=== PATIENT | female | born 1935 | race Two or more races ===

== ENCOUNTER 2024-11-21 16:33 | Inpatient (IN) | payer OTHER, MEDICAID ==
[~2024-11-21] VITALS: Ht 152.4 cm; Wt 65.0 kg
--- NOTE | 2024-11-21 18:38 | ED.PDOC ---
SOB-HPI HPI Comments 89 y.o female with PMHx of DM, HTN, hyperlipidemia, presents to the ED for a chief complaint of a productive cough associated with phlegm and sweats that started 5 days ago. Patient was taken to a clinic by daughter and granddaughter today, per staff SPO2 read low there and HR was elevated. Patient was placed on oxygen then and transferred to the ED via family members. Patient at this time does not complaint of SOB, chest pain, fever, chills. Chief Complaint: Shortness of Breath Time Seen by MD: 18:26 Primary Care Provider: UNKNOWN Reviewed notes: Nurses Notes, Medications, Allergies Information Source: Relative Mode of Arrival: Wheelchair Severity: Moderate Timing: Days (5) Duration: Since onset Context: At Rest PE Risk Factors: None History of: None Associated Signs and Symptoms: Cough If cough with SOB: Productive, Clear Past Medical History PAST MEDICAL HISTORY: DM, High Lipids, HTN Surgical History: Denies all surgeries INSURANCE UNDERWRITER History: No Pertinent INSURANCE UNDERWRITER History Family History Family History: Reviewed,noncontributory to illness Social History Smoker: Non-Smoker Alcohol: Denies ETOH Use Drugs: Denies Drug Use Lives In: Home Constitutional: reports: sweats; denies: chills, diaphoresis, fatigue, fever, malaise, weakness, others EENTM: denies: blurred vision, double vision, ear bleeding, ear discharge, ear drainage, ear pain, ear ringing, eye pain, eye redness, hearing loss, mouth pain, mouth swelling, nasal discharge, nose bleeding, nose congestion, nose pain, photophobia, tearing, throat pain, throat swelling, voice changes, others Respiratory: reports: cough; denies: hemoptysis, orthopnea, SOB at rest, shortness of breath, SOB with excertion, stridor, wheezing, others Cardiovascular: denies: chest pain, dizzy spells, diaphoresis, Dyspnea on exertion, edema, irregular heart beat, left arm pain, lightheadedness, palpitations, PND, syncope, others Gastrointestinal: denies: abdomen distended, abdominal pain, blood streaked bowels, constipated, diarrhea, dysphagia, difficulty swallowing, hematemesis, melena, nausea, poor appetite, poor fluid intake, rectal bleeding, rectal pain, vomiting, others Genitourinary: denies: abnormal vagina bleeding, burning, dyspareunia, dysuria, flank pain, frequency, hematuria, incontinence, pain, , vagina discharge, urgency, others Neurological: denies: dizziness, fainting, headache, left sided numbness, left sided weakness, numbness, paresthesia, pre-existing deficit, right sided numbness, right sided weakness, seizure, speech problems, tingling, tremors, weakness, others Musculoskeletal: denies: back pain, gout, joint pain, joint swelling, muscle pain, muscle stiffness, neck pain, others Integumetry: denies: bruises, change in color, change in hair/nails, dryness, laceration, lesions, lumps, rash, wounds, others Allergic/Immunocompromised: denies: Difficulty Healing, Frequent Infections, H jeanette, Itching, others Hematologic/Lymphatic: denies: anemia, blood clots, easy bleeding, easy bruising, swollen glands, others Endocrine: denies: excessive hunger, excessive sweating, excessive thirst, excessive urination, flushing, intolerance to cold, intolerance to heat, unexplained weight gain, unexplained weight loss, others Psychiatric: denies: anxiety, bipolar disorder, depression, hopeless, panic disorder, schizophrenia, sleepless, suicidal, others All Other Systems: Reviewed and Negative Physical Exam General Appearance: Moderate Distress, Thin HEENT: Normal ENT Inspection, Pharynx Normal, TMs Normal Neck: Full Range of Motion, Non-Tender, Normal, Normal Inspection Respiratory: Chest Non-Tender, Decreased Breath Sounds, No Accessory Muscle Use, Respiratory Distress Cardiovascular: No Edema, No JVD, No Murmur, No Gallop, Tachycardia Breast Exam: Deferred Gastrointestinal: No Organomegaly, Non Tender, No Pulsatile Mass, Normal Bowel Sounds, Soft Genitalia: Deferred Pelvic: Deferred Rectal: Deferred Extremities: No calf tenderness, Normal capillary refill, No pedal edema Musculoskeletal : Apperance: Normal Neurologic: Alert, frozen meat cutter II-XII nml as Tested, Motor Weakness, Normal Affect, Normal Mood, No Sensory Deficits Cerebellar Function: Normal Reflexes: Normal Skin: Dry, Normal Color, Warm Lymphatic: No Adenopathy EKG EKG : Pulse Rate (adult): 112 Cardiac Rhythm: ST Was a procedure done? Was a procedure done?: No Differential Dx Differential Diagnosis: Bronchitis, CHF, COPD, Pneumonia, Respiratory Distress, URI X-Ray, Labs, Meds, VS Vital Signs Date Time Temp Pulse Resp B/P (MAP) Pulse Ox O2 Delivery O2 Flow Rate FiO2 11/21/24 18:38 112 11/21/24 16:52 112 11/21/24 16:49 98.0 120 22 127/71 (89) 91 98.0 Lab Test 11/21/24 19:53 11/21/24 18:59 Range/Units Sodium Level 158 H 136-145 mmol/L Potassium Level 3.8 3.5-5.1 mmol/L Chloride Level 118 H 98-107 mmol/L Carbon Dioxide Level 27 20-31 mmol/L Anion Gap 13 5-15 Blood Urea Nitrogen 36 H 9-23 mg/dL Creatinine 1.47 H 0.550-1.02 mg/dL Glomerular Filtration Rate Calc 34 >90 mL/min BUN/Creatinine Ratio 24.5 H 10.0-20.0 Serum Glucose 319 H 74-106 mg/dL Calcium Level 10.5 H 8.7-10.4 mg/dL Troponin I High Sensitivity 38 *H 39 *H </=34 ng/L White Blood Count 7.8 4.4-10.8 10^3/uL Red Blood Count 5.86 H 4.0-5.20 10^6/uL Hemoglobin 16.8 H 12.2-16.2 g/dL Hematocrit 52.4 H 36.0-46.0 % Mean Corpuscular Volume 89.4 80.0-100.0 fL Mean Corpuscular Hemoglobin 28.7 28.0-32.0 pg Mean Corpuscular Hemoglobin Concent 32.1 32.0-36.0 g/dL Red Cell Distribution Width 17.8 H 11.8-14.3 % Platelet Count 223 140-450 10^3/uL Mean Platelet Volume 9.1 6.9-10.8 fL Neutrophils (%) (Auto) 74.9 37.0-80.0 % Lymphocytes (%) (Auto) 17.0 10.0-50.0 % Monocytes (%) (Auto) 7.4 0.0-12.0 % Eosinophils (%) (Auto) 0.0 0.0-7.0 % Basophils (%) (Auto) 0.7 0.0-2.0 % Neutrophils # (Auto) 5.8 1.6-8.6 10 ^3/uL Lymphocytes # (Auto) 1.3 0.4-5.4 10 ^3/uL Monocytes # (Auto) 0.6 0-1.3 10 ^3/uL Eosinophils # (Auto) 0 0-0.8 10 ^3/uL Basophils # (Auto) 0.1 0-0.2 10 ^3/uL Nucleated Red Blood Cells 0.1 % B-Type Natriuretic Peptide 269.12 0-100 pg/mL Patient was CBC is within normal limits The BNP is 269.12 The troponin level is 38 and then 39 sign it was elevated At this time, the patient was being admitted to the hospitalist The chest x-ray shows: Findings/Impression: Frontal and lateral chest radiographs demonstrate that the patient facial structures obscuring the bilateral apices. No acute osseous or superficial soft tissue abnormalities. The trachea is midline. The cardiac silhouette and mediastinum are within normal limits. Left basilar atelectasis. No pneumothorax, pleural effusions, or consolidations. Images Reviewed?: Images reviewed and evaluated by me Time of 1ST Reevaluation: 18:35 Reevaluation 1ST: Unchanged Patient Education/Counseling: Diagnosis, Prognosis Family Education/Counseling: Diagnosis, Treatment, Prognosis Departure 1 Departure Time of Disposition: 21:09 Impression: Primary Impression: Generalized weakness Additional Impressions: Elevated troponin Acute respiratory distress Disposition: ADMITTED INPATIENT Condition: Fair Critical Care Note Critical Care Time?: Yes (35 min-critical care time only) Stability Stability form required: Yes Unstable for transfer: Telemetry monitoring (Telemetry monitoring required), ED Physician Assesment (Clinical assesment) I personally scribed for TONI BINGHAM MD ([email or web address]) on 11/21/24 at 18:38. Electronically submitted by Laura Ivan ([facility]). TONI BINGHAM MD Nov 21, 2024 18:38
[2024-11-21 19:23] LABS: Basophils # (auto) 0.1 10 ^3/uL (0-0.2); Basophils % (auto) 0.7 % (0.0-2.0); Eosinophils # (auto) 0 10 ^3/uL (0-0.8); Hematocrit 52.4 % (36.0-46.0); Hemoglobin 16.8 g/dL (12.2-16.2); Lymphocytes # (auto) 1.3 10 ^3/uL (0.4-5.4); Mean Corpuscular Hemoglobin 28.7 pg (28.0-32.0); Mean Corpuscular Hgb Conc. 32.1 g/dL (32.0-36.0); Mean Corpuscular Volume 89.4 fL (80.0-100.0); Monocytes # (auto) 0.6 10 ^3/uL (0-1.3); Monocytes % (auto) 7.4 % (0.0-12.0); Neutrophils # (auto) 5.8 10 ^3/uL (1.6-8.6); Neutrophils % (auto) 74.9 % (37.0-80.0); Nucleated Red Blood Cells % 0.1 %; Platelet Count (auto) 223 10^3/uL (140-450); Red Blood Cells 5.86 10^6/uL (4.0-5.20); Red Cell Distribution Width 17.8 % (11.8-14.3); White Blood Cell 7.8 10^3/uL (4.4-10.8)
--- NOTE | 2024-11-21 19:47 | DVH ---
EXAM: XY CHEST TWO VIEWS ROUTINE TECHNIQUE: Two radiographic views of the chest CLINICAL HISTORY: sob COMPARISON: None Findings/Impression: Frontal and lateral chest radiographs demonstrate that the patient facial structures obscuring the bi lateral apices. No acute osseous or superficial soft tissue abnormalities. The trachea is midline. The cardiac silhouette and mediastinum are within normal limits. Left basilar atelectasis. No pneumothorax, pleural effusions, or consolidations.
[2024-11-21 20:19] LABS: Potassium 3.8 mmol/L (3.5-5.1)
[2024-11-21 20:20] LABS: Anion Gap 13 (5-15); Carbon Dioxide 27 mmol/L (20-31)
[2024-11-21 20:23] LABS: Calcium 10.5 mg/dL (8.7-10.4); Chloride 118 mmol/L (98-107); Sodium 158 mmol/L (136-145)
[2024-11-21 20:25] LABS: BUN/Creatinine Ratio 24.5 (10.0-20.0)
[2024-11-21 20:27] LABS: Blood Urea Nitrogen 36 mg/dL (9-23); Glucose 319 mg/dL (74-106)
[2024-11-22] VITALS (7 sets, daily range): BP systolic 123–138; BP diastolic 66–78; PULSE 74–108; RESP 16–18; TEMP 97.4–99.9; O2SAT 90–97
[2024-11-22 01:14] LABS: Rapid Influenza A Negative (Negative); Rapid Influenza B Negative (Negative)
[2024-11-22 01:15] LABS: COVID19 ANTIGEN SOFIA FIA NEGATIVE (NEGATIVE)
[2024-11-22] MEDS ORDERED: DOCUSATE SOD 100 MG CAP PO PRN (01:30)
[2024-11-22] MEDS ORDERED: MORPHINE SULFATE INJ 2 MG/ml SYRG IV PRN (01:30)
[2024-11-22] MEDS ORDERED: NITROGLYCERIN 0.4 MG SL TAB SL PRN (01:30)
[2024-11-22] MEDS ORDERED: DEXTROSE (50%) 50ML SYRG IV PRN (06:45)
[2024-11-22] MEDS: ACCU-CHEK COMFORT CURVE STRIP VI SCH (07:00)
[2024-11-22] MEDS: InsuLIN REG 1unit/0.01ml Soln (100units/ml) SC SCH (07:00)
[2024-11-22] MEDS: ACCU-CHEK COMFORT CURVE STRIP VI ONE (08:00)
[2024-11-22] MEDS: InsuLIN REG 1unit/0.01ml Soln (100units/ml) SC ONE (08:00)
[2024-11-22] MEDS: DEXTROSE (50%) 50ML SYRG IV ONE (08:00)
[2024-11-22] MEDS ORDERED: SODIUM CHLORIDE 0.9% 1,000 ML IV SCH (08:15)
--- NOTE | 2024-11-22 08:30 | DVHHPRES ---
History of Present Illness Resident Creating Document: NOMI BAPTISTE RESIDENT History of Present Illness Ms. Patel, a 89-year-old female with a history of diabetes, hypertension, and hyperlipidemia presented to the emergency department with a productive cough, phlegm, and sweats that started five days ago. Her daughter and granddaughter took her to a clinic where her oxygen saturation was low and her heart rate was elevated. She was placed on oxygen and transferred to the ED by family members. She does not currently complain of shortness of breath, chest pain, fever, or chills. She arrived in a wheelchair, reports moderate severity, and the symptoms developed gradually over five days. She has no surgical history, no pertinent gynecological history, and her family history is noncontributory. She is a non- smoker, denies alcohol and drug use, and lives at home. Past Medical History diabetes, hypertension, and hyperlipidemia Review of Systems Allergies: Coded Allergies: Lactose Intolerance (GI) (Verified Allergy, Mild, 11/27/24) diarrhea Medications Current Medications Medications Dose Ordered Sig/Clara Route Start Time Stop Time Status Last Admin Dose Admin Docusate Sodium 100 mg BIDPRN PRN PO 11/22/24 01:30 Enoxaparin Sodium 30 mg DAILY SC 11/22/24 10:00 Nitroglycerin 0.4 mg Q5MINP PRN SL 11/22/24 01:30 Morphine Sulfate 2 mg Q30M PRN IV 11/22/24 01:30 Diagnostic Test (Pha) 1 strip ACHS 11/22/24 07:00 Insulin Human Regular ACHS SC 11/22/24 07:00 Dextrose 50 ml UD PRN IV 11/22/24 06:45 Exam Vital Signs Vital Signs Date Time Temp Pulse Resp B/P (MAP) Pulse Ox O2 Delivery O2 Flow Rate FiO2 11/22/24 05:00 99.9 105 17 134/77 (96) 95 99.9 11/22/24 04:43 Nasal Cannula* 2 28 Labs/Xrays Labs Test 11/22/24 00:10 11/21/24 22:00 11/21/24 19:53 11/21/24 18:59 Range/Units Influenza Type A Antigen Negative Negative Influenza Type B Antigen Negative Negative SARS-CoV-2 Antigen (Rapid) Negative NEGATIVE Troponin I High Sensitivity 41 *H </=34 ng/L Sodium Level 158 H 136-145 mmol/L Potassium Level 3.8 3.5-5.1 mmol/L Chloride Level 118 H 98-107 mmol/L Carbon Dioxide Level 27 20-31 mmol/L Anion Gap 13 5-15 Blood Urea Nitrogen 36 H 9-23 mg/dL Creatinine 1.47 H 0.550-1.02 mg/dL Glomerular Filtration Rate Calc 34 >90 mL/min BUN/Creatinine Ratio 24.5 H 10.0-20.0 Serum Glucose 319 H 74-106 mg/dL Calcium Level 10.5 H 8.7-10.4 mg/dL White Blood Count 7.8 4.4-10.8 10^3/uL Red Blood Count 5.86 H 4.0-5.20 10^6/uL Hemoglobin 16.8 H 12.2-16.2 g/dL Hematocrit 52.4 H 36.0-46.0 % Mean Corpuscular Volume 89.4 80.0-100.0 fL Mean Corpuscular Hemoglobin 28.7 28.0-32.0 pg Mean Corpuscular Hemoglobin Concent 32.1 32.0-36.0 g/dL Red Cell Distribution Width 17.8 H 11.8-14.3 % Platelet Count 223 140-450 10^3/uL Mean Platelet Volume 9.1 6.9-10.8 fL Neutrophils (%) (Auto) 74.9 37.0-80.0 % Lymphocytes (%) (Auto) 17.0 10.0-50.0 % Monocytes (%) (Auto) 7.4 0.0-12.0 % Eosinophils (%) (Auto) 0.0 0.0-7.0 % Basophils (%) (Auto) 0.7 0.0-2.0 % Neutrophils # (Auto) 5.8 1.6-8.6 10 ^3/uL Lymphocytes # (Auto) 1.3 0.4-5.4 10 ^3/uL Monocytes # (Auto) 0.6 0-1.3 10 ^3/uL Eosinophils # (Auto) 0 0-0.8 10 ^3/uL Basophils # (Auto) 0.1 0-0.2 10 ^3/uL Nucleated Red Blood Cells 0.1 % B-Type Natriuretic Peptide 269.12 0-100 pg/mL Assessment/Plan Assessment/Plan #Community-acquired pneumonia vs aspiration pneumonia: Gram +ve vs -ve cough phlegm chest discomfort on 2 L oxygen, viral workup -ve, emprirc coverage. #Acute hypoxic respiratory failure: 2l NC oxygen. denies chest pain #Type 2 NSTEMI: Likely demand mediated. No acute EKG changes. on telemetry #hypernatremia: Bmp revealed 158: patient is hypovolumic, iv ns for now, might correct by itself, 1.4 L #MITCHELL vs CKD baseline unknown #H/o DM: BG well maintained #Hyperlipidemia: re check #HTN essential: bp well, check closely no need of antihypertensives #mild hypercalcemia: 10.5, check CMP, correct according to albumin level, vitamin-D, phosphate, PTH to check. #unlikely polycythemia: Likely due to hemo concentration, repeat CBC #sinus tachycardia: Keep the patient on telemetry, check D-dimer, if elevated CTPE to rule out. #mild hypernatremia: Even when corrected for hyperglycemia #possible malnutrition: check CMP and as needed nutrition consult #deconditioning: PT + fall precaution. tsh b12 and further family discussion to know baseline. DVT: enoxaparin GI: ppi Diet: full liquid diet. Full code: discussed at bedside with [place] interpreters. 36 minutes of c linical work and discussion. Discussed with Dr. Louise. Plan discussed with: Patient, Other My Orders Orders - NOMI BAPTISTE RESIDENT Procedure Category Date Status Time Admit ADMIT 11/22/24 Transmitted 01:26 Allergies CAS 11/22/24 In Process 01:26 Code Status CODE 11/22/24 Transmitted 01:26 Oxygen Per Hour RT 11/22/24 Transmitted 01:26 Docusate Sodium PHA 11/22/24 In Process Capsule (Colace 01:30 Fall Risk Precautions CAS 11/22/[address] 01:26 Complete Blood Count LAB 11/23/24 Verified 04:00 Comprehensive LAB 11/23/24 Verified Metabolic Panel 04:00 Npo (Nothing By DIET 11/22/24 Transmitted Mouth) Diet Breakfast Pt Request For Service PT 11/22/24 Logged 01:26 Echo 2d Mode Cardiac US 11/22/24 Logged DOP 01:26 Nitroglycerin PHA 11/22/24 In Process Sublingual (Ntrostat 01:30 Morphine Sulfate PHA 11/22/24 In Process Injection 01:30 Oxygen By Nasal RT 11/22/24 Transmitted Cannula 01:26 Stat Ekg For Chest [facility] 11/22/24 In Process Pain 01:26 Notify Of Changes [facility] 11/22/24 In Process From Base 01:26 Superintendent Job For [facility] 11/22/24 In Process 24 Hours 01:26 Emergency Dysrhythmia [facility] 11/22/24 In Process Protocol 01:26 Rhythm Strips Once [facility] 11/22/24 In Process Every Shift 01:26 Enoxaparin Sodium PHA 11/22/24 In Process (Lovenox) 10:00 Glucose Blood PHA 11/22/24 In Process (Accu-Chek Comfort 07:00 Insulin R (Human) PHA 11/22/24 In Process (Insulin R) 07:00 Dextrose 50% Syringe PHA 11/22/24 In Process 06:45 Complete Blood Count LAB 11/22/24 Logged 07:45 Comprehensive LAB 11/22/24 Logged Metabolic Panel 07:45 Erythrocyte LAB 11/22/24 Logged Sedimentation Rate 07:45 C-Reactive Protein LAB 11/22/24 Logged 07:45 Thyroid Stimulating LAB 11/22/24 Logged Hormone 07:45 Electrocardigram EKG 11/22/24 Logged 07:52 Communication Order ORDERS 11/22/24 Transmitted 07:53 Glucose Blood PHA 11/22/24 Logged (Accu-Chek Comfort 08:00 Insulin R (Human) PHA 11/22/24 Logged (Insulin R) 08:00 Dextrose 50% Syringe PHA 11/22/24 Logged 08:00 Full Liq Diet DIET 11/22/24 Transmitted Breakfast Hemoglobin A1c LAB 11/22/24 Transmitted 07:59 Lipid Panel LAB 11/22/24 Transmitted 07:59 Date of Service: Nov 22, 2024 Billing Provider: SYEDA LOUISE MD Common Visit Codes: [id number] INP/OBS CARE (HIGH) NOMI BAPTISTE RESIDENT Nov 22, 2024 08:30 SYEDA LOUISE MD Nov 28, 2024 22:11
[2024-11-22] MEDS ORDERED: AZITHROMYCIN 500MG/ 250ML 250 ML IV SCH (09:00)
[2024-11-22] MEDS ORDERED: SOD CHL 0.45% 1,000 ML IV ONE (09:45)
[2024-11-22] MEDS: SODIUM CHLORIDE 0.9% 1,000 ML IV ONE ×2 (10:17→15:30)
[2024-11-22 10:21] LABS: Base Excess 1.3 mmol/L (-2.0-3.0)
[2024-11-22] MEDS: cefTRIAXone 1GM/50ML D5W 50 ML IV SCH (10:24)
[2024-11-22] MEDS: ENOXAPARIN SOD 30 MG/0.3 ML SYRINGE SC SCH ×2 (10:24→20:29)
[2024-11-22] MEDS: PANTOPRAZOLE 40 MG/10 ML VIAL INJ IV SCH (10:24)
--- NOTE | 2024-11-22 10:46 | ECG ---
[facility] Test Date: 2024-11-21 Test Time: 16:52:54 Pat Name: CHANNING BLANCA Department: ER Room: 0236T A Gender: F Abstracter: YOLIE : 1935 Requested By: TONI BINGHAM Order Number: [id number] Reading MD: Joe Joseph Measurements Intervals [place] Rate: 112 P: 14 CT: 113 QRS: -8 QRSD: 220 T: 18 QT: 319 QTc: 436 Interpretive Statements Sinus tachycardia Probable left ventricular hypertrophy Artifact in lead(s) I,III,aVL Electronically Signed On 11-24-2024 20:40:55 PDT by Joe Joseph Please click the below link to view image of tracing.
[2024-11-22 10:56] LABS: Basophils # (auto) 0.1 10 ^3/uL (0-0.2); Basophils % (auto) 0.6 % (0.0-2.0); Eosinophils # (auto) 0 10 ^3/uL (0-0.8); Hematocrit 50.5 % (36.0-46.0); Hemoglobin 16.6 g/dL (12.2-16.2); Lymphocytes # (auto) 1.9 10 ^3/uL (0.4-5.4); Lymphocytes % (auto) 18.8 % (10.0-50.0); Mean Corpuscular Hemoglobin 28.8 pg (28.0-32.0); Mean Corpuscular Hgb Conc. 32.8 g/dL (32.0-36.0); Mean Corpuscular Volume 87.9 fL (80.0-100.0); Monocytes # (auto) 0.6 10 ^3/uL (0-1.3); Monocytes % (auto) 5.9 % (0.0-12.0); Neutrophils # (auto) 7.6 10 ^3/uL (1.6-8.6); Neutrophils % (auto) 74.7 % (37.0-80.0); Nucleated Red Blood Cells % 0.1 %; Platelet Count (auto) 243 10^3/uL (140-450); Red Blood Cells 5.75 10^6/uL (4.0-5.20); Red Cell Distribution Width 17.2 % (11.8-14.3); White Blood Cell 10.1 10^3/uL (4.4-10.8)
[2024-11-22 11:12] LABS: % Iron Saturation 25.3 % (15-50); Alanine Aminotransferase 16 U/L (7-40); Alkaline Phosphatase 60 U/L (46-116); Anion Gap 14 (5-15); Aspartate Aminotransferase 18 U/L (13-40); BUN/Creatinine Ratio 29.7 (10.0-20.0); Bilirubin, Total 0.5 mg/dL (0.2-1.0); Carbon Dioxide 28 mmol/L (20-31); Potassium 3.6 mmol/L (3.5-5.1); Total Protein 8.1 g/dL (5.7-8.2)
[2024-11-22 11:18] LABS: Blood Urea Nitrogen 43 mg/dL (9-23); Calcium 10.5 mg/dL (8.7-10.4); Chloride 119 mmol/L (98-107); Cholesterol 229 mg/dL (< 200); Glucose 233 mg/dL (74-106); HDL Cholesterol 39 mg/dL (40-59); LDL Cholesterol 165 mg/dL (< 100); Triglycerides 165 mg/dL (< 150)
[2024-11-22 11:20] LABS: Sodium 161 mmol/L (136-145)
[2024-11-22 11:27] LABS: CRP High Sensitivity 2.38 mg/dL (<1.0)
[2024-11-22 11:29] LABS: Erythrocyte Sedimentation Rate 29 mm/hr (0-20)
[2024-11-22] MEDS: AZITHROMYCIN 500MG/ 250ML 250 ML IV ONE (11:54)
[2024-11-22 13:36] LABS: Potassium 3.5 mmol/L (3.5-5.1)
[2024-11-22 13:37] LABS: Anion Gap 12 (5-15); Calcium 9.7 mg/dL (8.7-10.4); Carbon Dioxide 27 mmol/L (20-31); Chloride 121 mmol/L (98-107); Sodium 160 mmol/L (136-145)
[2024-11-22 13:42] LABS: Glucose 250 mg/dL (74-106)
[2024-11-22 13:43] LABS: BUN/Creatinine Ratio 30.9 (10.0-20.0); Blood Urea Nitrogen 38 mg/dL (9-23)
[2024-11-22] MEDS: SODIUM CHLORIDE 0.9% 1,000 ML IV SCH (15:30)
--- NOTE | 2024-11-22 16:24 | DVHPNRES ---
Progress Note Date Seen: Nov 22, 2024 Resident Creating Document: BRAVO HUGGINS RESIDENT Medical Necessity Reason Pt with a Central, PICC or Fol: No Subjective Review of Systems Patient is 89 years old female with past medical history of hypertension, diabetes mellitus, hyperlipidemia, dementia was brought in due to productive cough. As per family granddaughter patient has been having cough with greenish sputum for last 7 days associated with sweating, denied any fever, chest pain or shortness of breath. Patient was taken to clinic and where she was found to have hypoxemia and tachycardia. The so patient was referred to ER. Initial lab workup revealed polycythemia, hyponatremia sodium 158, MITCHELL with a serum creatinine 1.47, BUN 36, mildly elevated troponin I 39> 35>45, BNP 269, D-dimer 3.0, negative for COVID-19 and influenza type A and B. triglyceride 165, cholesterol 229, LDL 165. CXR left basilar atelectasis. PMH-hypertension, diabetes mellitus, hyperlipidemia, severe dementia PSH- Allergy- NKDA Personal History/ Social History- patient is more Home came 1 month before, lives with her son Patient is nonverbal, noncommunicating at this moment Patient was seen today for clinical evaluation. Labs and chart reviewed. Patient is on IV antibiotic ceftriaxone and azithromycin, patient with a hyponatremia IV normal saline bolus was given. Due for Doppler study of the lower extremity to rule out DVT as D-dimer is elevated 3.0. Objective vital signs Vital Sign Date Time Temp Pulse Resp B/P (MAP) Pulse Ox O2 Delivery O2 Flow Rate FiO2 11/22/24 13:00 97.4 78 16 123/66 (85) 90 97.4 11/22/24 08:00 Nasal Cannula* 6 44 Total Intake and Output 11/21/24 11/21/24 11/22/24 15:00 23:00 07:00 Intake Total 0 ml Balance 0 ml medications Current Medications Medications Dose Ordered Sig/Clara Route Start Time Stop Time Status Last Admin Dose Admin Docusate Sodium 100 mg BIDPRN PRN PO 11/22/24 01:30 Enoxaparin Sodium 30 mg DAILY SC 11/22/24 10:00 11/22/24 10:24 30 MG Nitroglycerin 0.4 mg Q5MINP PRN SL 11/22/24 01:30 Morphine Sulfate 2 mg Q30M PRN IV 11/22/24 01:30 Diagnostic Test (Pha) 1 strip ACHS 11/22/24 07:00 11/22/24 11:55 1 STRIP Insulin Human Regular ACHS SC 11/22/24 07:00 Dextrose 50 ml UD PRN IV 11/22/24 06:45 Ceftriaxone Sodium 50 ml @ 100 mls/hr DAILY@09 IV 11/22/24 09:00 11/22/24 10:24 100 MLS/HR Pantoprazole Sodium 40 mg DAILY IV 11/22/24 10:00 11/22/24 10:24 40 MG Azithromycin 250 ml @ 125 mls/hr DAILY IV 11/23/24 10:00 Sodium Chloride 1,000 ml @ 100 mls/hr Q10H IV 11/22/24 15:30 Examination General examination- HEENT- PEERLA, no acute nasal discharge Cardiovascular- S1-S2 audible, rate and rhythm regular, no murmur Respiratory- CTAB, no wheeze or rhonchi Gastrointestinal-nontender, bowel sound+. Nondistended Musculoskeletal-no acute joint swelling or tenderness or redness Lower extremity- no leg swelling Neurological- cranial nerves intact, no acute dysarthria or dysphagia Skin- no acute rash or purpura laboratory and microbiology Laboratory Tests 11/22/24 12:59 11/22/24 09:27 Test 11/22/24 12:59 Range/Units Serum Glucose 250 H 74-106 mg/dL Problem List/Assessment/Plan Problem List/Assessment/Plan Assessment and plan # sepsis likely due to pneumonia --continue antibiotic ceftriaxone and azithromycin as prescribed -continue IV fluid as prescribed -monitor CMP -pending blood culture, urine culture, sputum culture # acute metabolic encephalopathy likely due to pneumonia/hyponatremia -continue antibiotic ceftriaxone and azithromycin as prescribed -continue IV fluid as prescribed -monitor CMP -pending blood culture, urine culture, sputum culture # suspected pneumonia Gram-positive versus Gram-negative --continue antibiotic ceftriaxone and azithromycin as prescribed -continue IV fluid as prescribed -monitor CMP # Hypernatremia likely due to dehydration -monitor IV fluid as prescribed -monitor CMP # MITCHELL likely due to VMN -avoid dehydration and nephrotoxic drugs -continue IV fluid as prescribed # NSTEMI Type 2 likely due to -monitor clinically # diabetes mellitus type 2 --insulin sliding scale as prescribed # history of hypertension -monitor blood pressure # hyperlipidemia Goals of care, Code status ; discussed with >15 minutes PUD prophylaxis: Pantoprazole DVT prophylaxis: Lovenox Plan discussed with Dr. Kruger , nursing staff, granddaughter Total time spent on patient evaluation, chart review, assessment and plan, discussion discussion >35 minutes Plan discussed with: Other (Granddaughter, RN) My Orders My Orders Orders - BRAVO HUGGINS Procedure Category Date Status Time Blood Culture JOSE 11/22/24 In Process 08:46 Respiratory Culture JOSE 11/22/24 Logged W/ Gs 08:46 Urine Bacterial JOSE 11/22/24 Logged Culture 08:47 Sodium Chloride 0.9% PHA 11/22/24 In Process 15:30 Sodium Chloride 0.9% PHA 11/22/24 In Process 15:30 Basic Metabolic Panel LAB 11/22/24 Logged 17:00 Basic Metabolic Panel LAB 11/22/24 Logged 18:22 Basic Metabolic Panel LAB 11/22/24 Logged 23:50 Bilat Lower Dvt US 11/22/24 Taken 15:24 Date of Service: Nov 22, 2024 Billing Provider: STACY REID MD Common Visit Codes: [id number] INP/OBS CARE(HIGH) BRAVO HUGGINS Nov 22, 2024 16:24 STACY REID MD Nov 28, 2024 09:36
--- NOTE | 2024-11-22 16:34 | DVH ---
EXAM: US BILAT LOWER DVT Clinical History: DVT Comparison: None Technique: Duplex Doppler evaluation of the deep venous systems of both lower extremities from the common femora l veins to the popliteal veins including color Doppler and spectral/pulsed waveform analysis was perf ormed. Findings: No visible intraluminal venous thrombus. No evidence of incompressibility or abnormal color or spectr al Doppler flow visualized in the deep bilateral lower extremity veins. Proximal greater saphenous ve ins are grossly unremarkable. The right distal superficial femoral, popliteal, and posterior tibial veins are not visualized. Impression: 1. No sonographic evidence of deep venous thrombosis throughout the visualized bilateral lower extrem ities from the popliteal veins to the common femoral veins. 2. The right distal superficial femoral, popliteal, and posterior tibial veins are not visualized.
[2024-11-22 18:02] LABS: Potassium 3.6 mmol/L (3.5-5.1)
[2024-11-22 18:03] LABS: Anion Gap 13 (5-15); Carbon Dioxide 27 mmol/L (20-31)
[2024-11-22 18:04] LABS: Calcium 9.4 mg/dL (8.7-10.4)
[2024-11-22 18:09] LABS: BUN/Creatinine Ratio 37.1 (10.0-20.0)
[2024-11-22] MEDS: D5W 5% 1,000 ML IV SCH (18:12)
[2024-11-22 18:31] LABS: Blood Urea Nitrogen 39 mg/dL (9-23); Chloride 120 mmol/L (98-107); Glucose 188 mg/dL (74-106); Sodium 160 mmol/L (136-145)
[2024-11-22 18:59] LABS: Anion Gap 11 (5-15); Calcium 9.4 mg/dL (8.7-10.4); Carbon Dioxide 28 mmol/L (20-31)
[2024-11-22 19:04] LABS: BUN/Creatinine Ratio 33.3 (10.0-20.0)
[2024-11-22 19:05] LABS: Blood Urea Nitrogen 33 mg/dL (9-23); Chloride 120 mmol/L (98-107); Glucose 194 mg/dL (74-106); Potassium 3.3 mmol/L (3.5-5.1); Sodium 159 mmol/L (136-145)
[2024-11-22] MEDS: SODIUM CHL 0.9% 100 ML IV SCH (20:00)
[2024-11-22] MEDS: METOPROLOL TARTRATE 1MG/1ML-5ML VIAL IV ONE ×2 (20:12→20:16)
[2024-11-22] MEDS: POTASSIUM CHL 20MEQ/50ML 50 ML IV ONE ×2 (20:14→20:32)
[2024-11-23] VITALS (8 sets, daily range): BP systolic 101–149; BP diastolic 56–76; PULSE 61–75; RESP 16–17; TEMP 97.2–99; O2SAT 92–97
[2024-11-23 00:10] LABS: Potassium 3.6 mmol/L (3.5-5.1)
[2024-11-23 00:11] LABS: Anion Gap 9 (5-15); Carbon Dioxide 26 mmol/L (20-31)
[2024-11-23 00:12] LABS: Calcium 8.9 mg/dL (8.7-10.4); Chloride 120 mmol/L (98-107); Sodium 155 mmol/L (136-145)
[2024-11-23 00:17] LABS: BUN/Creatinine Ratio 34.8 (10.0-20.0); Blood Urea Nitrogen 32 mg/dL (9-23); Glucose 212 mg/dL (74-106); Magnesium 1.8 mg/dL (1.6-2.6)
[2024-11-23 06:16] LABS: Basophils # (auto) 0 10 ^3/uL (0-0.2); Basophils % (auto) 0.4 % (0.0-2.0); Eosinophils # (auto) 0 10 ^3/uL (0-0.8); Eosinophils % (auto) 0.5 % (0.0-7.0); Hemoglobin 13.6 g/dL (12.2-16.2); Lymphocytes # (auto) 1.8 10 ^3/uL (0.4-5.4); Lymphocytes % (auto) 26.7 % (10.0-50.0); Mean Corpuscular Hemoglobin 28.9 pg (28.0-32.0); Mean Corpuscular Hgb Conc. 32.4 g/dL (32.0-36.0); Mean Corpuscular Volume 89.2 fL (80.0-100.0); Monocytes # (auto) 0.4 10 ^3/uL (0-1.3); Monocytes % (auto) 6.6 % (0.0-12.0); Neutrophils # (auto) 4.3 10 ^3/uL (1.6-8.6); Neutrophils % (auto) 65.8 % (37.0-80.0); Nucleated Red Blood Cells % 0.1 %; Platelet Count (auto) 182 10^3/uL (140-450); Red Cell Distribution Width 17.7 % (11.8-14.3); White Blood Cell 6.6 10^3/uL (4.4-10.8)
[2024-11-23 06:33] LABS: Alanine Aminotransferase 17 U/L (7-40); Albumin 3.7 g/dL (3.2-4.8); Alkaline Phosphatase 50 U/L (46-116); Anion Gap 8 (5-15); Aspartate Aminotransferase 18 U/L (13-40); BUN/Creatinine Ratio 32.6 (10.0-20.0); Calcium 8.7 mg/dL (8.7-10.4); Carbon Dioxide 28 mmol/L (20-31); Magnesium 1.8 mg/dL (1.6-2.6); Potassium 3.7 mmol/L (3.5-5.1); Total Protein 6.2 g/dL (5.7-8.2)
[2024-11-23 06:34] LABS: Bilirubin, Total 0.5 mg/dL (0.2-1.0)
[2024-11-23 06:39] LABS: Blood Urea Nitrogen 30 mg/dL (9-23); Chloride 120 mmol/L (98-107); Glucose 183 mg/dL (74-106); Sodium 156 mmol/L (136-145)
[2024-11-23] MEDS: SOD CHL 0.45% 500 ML IV ONE (07:04)
[2024-11-23] MEDS: MAGNESIUM SULFATE 1GM/100ML 100 ML IV ONE (09:15)
[2024-11-23] MEDS ORDERED: SOD CHL 0.45% 1,000 ML IV ONE (09:45)
[2024-11-23] MEDS ORDERED: DEXTROSE (50%) 50ML SYRG IV PRN (10:45)
--- NOTE | 2024-11-23 11:28 | ECG ---
[facility] Test Date: 2024-11-22 Test Time: 19:59:23 Pat Name: CHANNING BLANCA Department: Respiratoy Room: 0236T A Gender: F [employer]: SANDI : 1935 Requested By: NOMI BAPTISTE Order Number: [id number] Reading MD: Joe Joseph Measurements Intervals [place] Rate: 160 P: 0 [place]: 0 QRS: -21 QRSD: 58 T: 169 QT: 282 QTc: 461 Interpretive Statements Atrial fibrillation with rapid V-rate Ventricular premature complex Borderline left axis deviation Repolarization abnormality, prob rate related Baseline wander in lead(s) V3,V4 Electronically Signed On 11-24-2024 20:25:53 PDT by Joe Joseph Please click the below link to view image of tracing.
[2024-11-23] MEDS ORDERED: SOD CHL 0.45% 1,000 ML IV SCH (11:45)
[2024-11-23] MEDS: ACCU-CHEK COMFORT CURVE STRIP VI SCH (12:00)
[2024-11-23] MEDS: InsuLIN REG 1unit/0.01ml Soln (100units/ml) SC SCH (12:00)
[2024-11-23 12:21] LABS: Urine Bacteria None Seen /hpf (None Seen)
[2024-11-23 12:31] LABS: Urine Blood TRACE /uL (Negative); Urine Clarity Clear (Clear); Urine Color Light-Yellow (Yellow); Urine Mucus FEW (None Seen); Urine Protein, UAD Negative (Negative); Urine Specific Gravity 1.018 (1.001-1.035); Urine Squamous Epithelial Cell FEW /hpf (<5); Urine Urobilinogen Normal (Negative); Urine WBC 77 /HPF (0-5); Urine pH 5.5 (5.0-9.0)
[2024-11-23] MEDS: AZITHROMYCIN 500MG/ 250ML 250 ML IV SCH (13:07)
[2024-11-23 13:20] LABS: Anion Gap 9 (5-15)
[2024-11-23 13:23] LABS: Calcium 8.6 mg/dL (8.7-10.4); Carbon Dioxide 26 mmol/L (20-31); Chloride 115 mmol/L (98-107); Potassium 3.5 mmol/L (3.5-5.1); Sodium 150 mmol/L (136-145)
[2024-11-23 13:25] LABS: Glucose 121 mg/dL (74-106)
[2024-11-23] MEDS ORDERED: VANCOMYCIN PER PHARMACY 0 MG IV SCH (13:45)
[2024-11-23 14:00] LABS: BUN/Creatinine Ratio 33.8 (10.0-20.0); Blood Urea Nitrogen 23 mg/dL (9-23)
[2024-11-23] MEDS: D5W 5% 1,000 ML IV SCH (14:02)
--- NOTE | 2024-11-23 14:39 | DVHPNRES ---
Progress Note Date Seen: Nov 23, 2024 Resident Creating Document: BRAVO HUGGINS RESIDENT Medical Necessity Reason Pt with a Central, PICC or Fol: No The following are medically ne: PICC Line, David Catheter Subjective Review of Systems Patient is 89 years old female with past medical history of hypertension, diabetes mellitus, hyperlipidemia, dementia was brought in due to productive cough. As per family granddaughter patient has been having cough with greenish sputum for last 7 days associated with sweating, denied any fever, chest pain or shortness of breath. Patient was taken to clinic and where she was found to have hypoxemia and tachycardia. The so patient was referred to ER. Initial lab workup revealed polycythemia, hyponatremia sodium 158, MITCHELL with a serum creatinine 1.47, BUN 36, mildly elevated troponin I 39> 35>45, BNP 269, D-dimer 3.0, negative for COVID-19 and influenza type A and B. triglyceride 165, cholesterol 229, LDL 165. CXR left basilar atelectasis. PMH-hypertension, diabetes mellitus, hyperlipidemia, severe dementia PSH- Allergy- NKDA Personal History/ Social History- patient is more [place] came 1 month before, lives with her son Patient is nonverbal, noncommunicating at this moment Patient was seen today for clinical evaluation. Labs and chart reviewed. Blood culture revealed Gram-positive cocci in cluster, ordered vancomycin as per pharmacy protocol. Patient's sodium trending down to 158> 161> 160> 159> 155> 156> 150>149. HGB A1c 6.7. Patient was still on NC O2 1 L/min, still poorly communicative, Doppler study of the lower extremity negative for DVT Objective vital signs Vital Sign Date Time Temp Pulse Resp B/P (MAP) Pulse Ox O2 Delivery O2 Flow Rate FiO2 11/23/24 12:58 98.2 68 17 120/67 (84) 97 98.2 11/23/24 08:00 Nasal Cannula* 4 36 Total Intake and Output 11/22/24 11/22/24 11/23/24 14:59 22:59 06:59 Intake Total 1000 ml 1660 ml 0 ml Balance 1000 ml 1660 ml 0 ml medications Current Medications Medications Dose Ordered Sig/Clara Route Start Time Stop Time Status Last Admin Dose Admin Docusate Sodium 100 mg BIDPRN PRN PO 11/22/24 01:30 Nitroglycerin 0.4 mg Q5MINP PRN SL 11/22/24 01:30 Morphine Sulfate 2 mg Q30M PRN IV 11/22/24 01:30 Ceftriaxone Sodium 50 ml @ 100 mls/hr DAILY@09 IV 11/22/24 09:00 11/23/24 10:29 100 MLS/HR Pantoprazole Sodium 40 mg DAILY IV 11/22/24 10:00 11/23/24 10:33 40 MG Enoxaparin Sodium 30 mg BID SC 11/22/24 20:00 11/23/24 10:34 30 MG Dextrose 1,000 ml @ 100 mls/hr Q10H IV 11/23/24 10:45 11/23/24 14:02 100 MLS/HR Diagnostic Test (Pha) 1 strip Q6HR 11/23/24 12:00 11/23/24 12:00 1 STRIP Insulin Human Regular Q6HR SC 11/23/24 12:00 Dextrose 50 ml UD PRN IV 11/23/24 10:45 Vancomycin HCl 0 ml @ 0 mls/hr UD IV 11/23/24 13:45 Azithromycin 250 ml @ 125 mls/hr DAILY IV 11/24/24 10:00 Examination General examination- HEENT- PEERLA, no acute nasal discharge Cardiovascular- S1-S2 audible, rate and rhythm regular, no murmur Respiratory- CTAB, no wheeze or rhonchi Gastrointestinal-nontender, bowel sound+. Nondistended Musculoskeletal-no acute joint swelling or tenderness or redness Lower extremity- no leg swelling Neurological- cranial nerves intact, no acute dysarthria or dysphagia Skin- no acute rash or purpura laboratory and microbiology Laboratory Tests 11/23/24 12:45 11/23/24 05:40 Test 11/23/24 12:45 Range/Units Serum Glucose 121 H 74-106 mg/dL Microbiology Date/Time Source Procedure Growth Status 11/22/24 12:59 Blood Blood Culture - Preliminary Resulted Problem List/Assessment/Plan Problem List/Assessment/Plan Assessment and plan # sepsis likely due to pneumonia --continue antibiotic ceftriaxone and azithromycin, vancomycin as prescribed -monitor CMP -pending blood culture, urine culture, sputum culture # acute metabolic encephalopathy likely due to pneumonia/hyponatremia -continue antibiotic ceftriaxone and azithromycin, vancomycin as prescribed -monitor CMP -pending blood culture, urine culture, sputum culture # suspected pneumonia Gram-positive versus Gram-negative --continue antibiotic ceftriaxone and azithromycin, vanco as prescribed -monitor CMP # Hypernatremia likely due to dehydration -monitor IV fluid as prescribed -monitor CMP # MITCHELL likely due to VMN -avoid dehydration and nephrotoxic drugs # NSTEMI Type 2 likely due to -monitor clinically # diabetes mellitus type 2 --insulin sliding scale as prescribed # history of hypertension -monitor blood pressure # hyperlipidemia Goals of care, Code status ; discussed with >15 minutes PUD prophylaxis: Pantoprazole DVT prophylaxis: Lovenox Plan discussed with Dr. Kruger , nursing staff, granddaughter Total time spent on patient evaluation, chart review, assessment and plan, discussion discussion >35 minutes Plan discussed with: Other (RN) My Orders My Orders Orders - BRAVO HUGGINS RESIDENT Procedure Category Date Status Time Bilat Lower Dvt US 11/22/24 Resulted 15:24 * Wound Consult CONS 11/22/24 Transmitted * Dietary Consult CONS 11/22/24 Transmitted 16:21 Basic Metabolic Panel LAB 11/23/24 Logged 15:00 D5w 5% (Dextrose 5%) PHA 11/23/24 In Process 10:45 Glucose Blood PHA 11/23/24 In Process (Accu-Chek Comfort 12:00 Insulin R (Human) PHA 11/23/24 In Process (Insulin R) 12:00 Dextrose 50% Syringe PHA 11/23/24 In Process 10:45 Pt Request For Service PT 11/23/24 Logged 10:46 * Dietary Consult CONS 11/23/24 Transmitted 10:46 Urine Dip ED NURSING 11/23/24 Transmitted Insert David Catheter CAS 11/23/24 In Process 10:10 Vancomycin Per PHA 11/23/24 In Process Pharmacy 13:45 Cleanse Wound With CAS 11/23/24 In Process Mild Soap A 10:44 Azithromycin 500mg/ PHA 11/24/24 In Process 250ml (Zithromax 50 10:00 Vancomycin 1gm/200ml PHA 11/23/24 In Process Pm 14:00 Complete Blood Count LAB 11/24/24 Verified 04:00 Creatinine LAB 11/24/24 Verified 04:00 Vancomycin,Random LAB 11/24/24 Verified 04:00 Basic Metabolic Panel LAB 11/23/24 Transmitted 16:00 Basic Metabolic Panel LAB 11/23/24 Transmitted 22:00 Dietary Evaluation Review Comments: 1. Disagree with current diet, liberalize to Full Liquid and D/C sodium/CHO restrictions 2. Encourage good oral intakes >50% of meals to meet est. needs 3. Monitor wt trends closely 4. Assist w/ tray set-up, 1:1 feeding as needed due to AMS 5. Will add Glucerna BID (220 kcal, 10 gm pro/carton) *Change to Ensure Enlive when diet liberalized Expected Outcomes/Goals: Improved nutritional status, weight maintenance. Date of Service: Nov 23, 2024 Billing Provider: STACY REID MD Common Visit Codes: [id number] INP/OBS CARE(HIGH) BRAVO HUGGINS RESIDENT Nov 23, 2024 14:39 STACY REID MD Nov 28, 2024 09:41
[2024-11-23] MEDS: VANCOMYCIN 1GM/200ML PM 200 ML IV ONE (16:41)
[2024-11-23 17:15] LABS: Potassium 3.6 mmol/L (3.5-5.1)
[2024-11-23 17:16] LABS: Anion Gap 8 (5-15); Calcium 8.9 mg/dL (8.7-10.4); Carbon Dioxide 28 mmol/L (20-31)
[2024-11-23 17:21] LABS: BUN/Creatinine Ratio 32.4 (10.0-20.0)
[2024-11-23 17:25] LABS: Blood Urea Nitrogen 23 mg/dL (9-23); Chloride 113 mmol/L (98-107); Glucose 168 mg/dL (74-106); Sodium 149 mmol/L (136-145)
[2024-11-23 22:31] LABS: Anion Gap 8 (5-15); Carbon Dioxide 27 mmol/L (20-31)
[2024-11-23 22:34] LABS: Calcium 8.7 mg/dL (8.7-10.4); Chloride 111 mmol/L (98-107); Potassium 3.2 mmol/L (3.5-5.1); Sodium 146 mmol/L (136-145)
[2024-11-23 22:36] LABS: BUN/Creatinine Ratio 31.3 (10.0-20.0); Blood Urea Nitrogen 21 mg/dL (9-23)
[2024-11-23 22:39] LABS: Glucose 129 mg/dL (74-106)
[2024-11-24] VITALS (8 sets, daily range): BP systolic 130–153; BP diastolic 56–77; PULSE 58–70; RESP 16–18; TEMP 97.3–98.9; O2SAT 92–98
[2024-11-24 05:50] LABS: Basophils # (auto) 0 10 ^3/uL (0-0.2); Basophils % (auto) 0.8 % (0.0-2.0); Eosinophils # (auto) 0.1 10 ^3/uL (0-0.8); Eosinophils % (auto) 1.4 % (0.0-7.0); Hemoglobin 12.8 g/dL (12.2-16.2); Lymphocytes # (auto) 1.8 10 ^3/uL (0.4-5.4); Lymphocytes % (auto) 30.3 % (10.0-50.0); Mean Corpuscular Hemoglobin 29.1 pg (28.0-32.0); Mean Corpuscular Hgb Conc. 32.9 g/dL (32.0-36.0); Mean Corpuscular Volume 88.5 fL (80.0-100.0); Monocytes # (auto) 0.4 10 ^3/uL (0-1.3); Monocytes % (auto) 6.7 % (0.0-12.0); Neutrophils # (auto) 3.7 10 ^3/uL (1.6-8.6); Neutrophils % (auto) 60.8 % (37.0-80.0); Nucleated Red Blood Cells % 0.1 %; Platelet Count (auto) 170 10^3/uL (140-450); Red Blood Cells 4.41 10^6/uL (4.0-5.20); Red Cell Distribution Width 16.7 % (11.8-14.3); White Blood Cell 6.1 10^3/uL (4.4-10.8)
[2024-11-24 06:09] LABS: Alanine Aminotransferase 19 U/L (7-40); Albumin 3.3 g/dL (3.2-4.8); Alkaline Phosphatase 51 U/L (46-116); Anion Gap 9 (5-15); Aspartate Aminotransferase 29 U/L (13-40); Blood Urea Nitrogen 19 mg/dL (9-23); Carbon Dioxide 26 mmol/L (20-31); Magnesium 1.6 mg/dL (1.6-2.6); Total Protein 5.9 g/dL (5.7-8.2)
[2024-11-24 06:10] LABS: Bilirubin, Total 0.5 mg/dL (0.2-1.0)
[2024-11-24 06:11] LABS: Calcium 8.5 mg/dL (8.7-10.4); Chloride 110 mmol/L (98-107); Glucose 112 mg/dL (74-106); Potassium 3.2 mmol/L (3.5-5.1); Sodium 145 mmol/L (136-145)
[2024-11-24] MEDS: POTASSIUM CHL 20MEQ/50ML 50 ML IV SCH (06:51)
[2024-11-24] MEDS: SODIUM CHL 0.9% 100 ML IV SCH (06:53)
[2024-11-24] MEDS: MAGNESIUM SULFATE 1GM/100ML 100 ML IV SCH (07:23)
--- NOTE | 2024-11-24 09:01 | DVHPNRES ---
Progress Note Date Seen: Nov 24, 2024 Resident Creating Document: BRAVO HUGGINS RESIDENT Medical Necessity Reason Pt with a Central, PICC or Fol: No The following are medically ne: PICC Line, David Catheter Subjective Review of Systems Patient is 89 years old female with past medical history of hypertension, diabetes mellitus, hyperlipidemia, dementia was brought in due to productive cough. As per family granddaughter patient has been having cough with greenish sputum for last 7 days associated with sweating, denied any fever, chest pain or shortness of breath. Patient was taken to clinic and where she was found to have hypoxemia and tachycardia. The so patient was referred to ER. Initial lab workup revealed polycythemia, hyponatremia sodium 158, MITCHELL with a serum creatinine 1.47, BUN 36, mildly elevated troponin I 39> 35>45, BNP 269, D-dimer 3.0, negative for COVID-19 and influenza type A and B. triglyceride 165, cholesterol 229, LDL 165. CXR left basilar atelectasis. PMH-hypertension, diabetes mellitus, hyperlipidemia, severe dementia PSH- Allergy- NKDA Personal History/ Social History- patient is more [place] came 1 month before, lives with her son Patient is nonverbal, noncommunicating at this moment Patient was seen today for clinical evaluation. Labs and chart reviewed. Patient opened her eyes today and conversant even though patient has dementia. Not fully oriented Ordered repeat blood culture. Hyponatremia resolved today sodium 145, mild hypokalemia supplemented. Preliminary blood culture positive for Gram-positive cocci in cluster, on vancomycin. Urinalysis positive for UTI, on ceftriaxone IV 1 g daily. Pending urine culture sensitivity report. Objective vital signs Vital Sign Date Time Temp Pulse Resp B/P (MAP) Pulse Ox O2 Delivery O2 Flow Rate FiO2 11/24/24 08:30 98.1 60 18 130/65 (86) 98 98.1 11/23/24 20:00 Nasal Cannula* 4 36 Total Intake and Output 11/23/24 11/23/24 11/24/24 15:00 23:00 07:00 Intake Total 2200 ml 0 ml Output Total 500 ml 650 ml Balance 2200 ml -500 ml -650 ml medications Current Medications Medications Dose Ordered Sig/Clara Route Start Time Stop Time Status Last Admin Dose Admin Docusate Sodium 100 mg BIDPRN PRN PO 11/22/24 01:30 Nitroglycerin 0.4 mg Q5MINP PRN SL 11/22/24 01:30 Morphine Sulfate 2 mg Q30M PRN IV 11/22/24 01:30 Ceftriaxone Sodium 50 ml @ 100 mls/hr DAILY@09 IV 11/22/24 09:00 11/23/24 10:29 100 MLS/HR Pantoprazole Sodium 40 mg DAILY IV 11/22/24 10:00 11/23/24 10:33 40 MG Enoxaparin Sodium 30 mg BID SC 11/22/24 20:00 11/23/24 21:22 30 MG Dextrose 1,000 ml @ 100 mls/hr Q10H IV 11/23/24 10:45 11/23/24 21:23 100 MLS/HR Diagnostic Test (Pha) 1 strip Q6HR 11/23/24 12:00 11/24/24 05:02 1 STRIP Insulin Human Regular Q6HR SC 11/23/24 12:00 11/24/24 01:00 2 UNITS Dextrose 50 ml UD PRN IV 11/23/24 10:45 Vancomycin HCl 0 ml @ 0 mls/hr UD IV 11/23/24 13:45 Azithromycin 250 ml @ 125 mls/hr DAILY IV 11/24/24 10:00 Potassium Chloride 50 ml @ 25 mls/hr Q2H IV 11/24/24 06:30 11/24/24 10:29 11/24/24 06:51 25 MLS/HR Sodium Chloride 100 ml @ 50 mls/hr Q2H IV 11/24/24 06:30 11/24/24 10:29 11/24/24 06:53 50 MLS/HR Magnesium Sulfate/ Dextrose 100 ml @ 100 mls/hr Q1HR IV 11/24/24 07:00 11/24/24 08:59 11/24/24 07:23 100 MLS/HR Examination General examination- HEENT- PEERLA, no acute nasal discharge Cardiovascular- S1-S2 audible, rate and rhythm regular, no murmur Respiratory- CTAB, no wheeze or rhonchi Gastrointestinal-nontender, bowel sound+. Nondistended Musculoskeletal-no acute joint swelling or tenderness or redness Lower extremity- no leg swelling Neurological- cranial nerves intact, no acute dysarthria or dysphagia Skin- no acute rash or purpura laboratory and microbiology Laboratory Tests 11/24/24 05:28 Test 11/24/24 05:28 Range/Units Serum Glucose 112 H 74-106 mg/dL Microbiology Date/Time Source Procedure Growth Status 11/22/24 12:59 Blood Blood Culture - Preliminary Resulted Problem List/Assessment/Plan Problem List/Assessment/Plan Assessment and plan-patient came with sepsis likely due to pneumonia/UTI. Patient also had hyoernatremia resolved, patient's blood culture was positive for Gram-positive cocci in cluster. Ordered repeat blood culture today. If negative patient can be discharged tomorrow if hemodynamically stable based on clinical chest pain and other parameters. # sepsis likely due to pneumonia/UTI --continue antibiotic ceftriaxone and azithromycin, vancomycin as prescribed -monitor CMP -preliminary blood culture Gram-positive cocci in cluster # acute metabolic encephalopathy likely due to pneumonia/hyponatremia -continue antibiotic ceftriaxone and azithromycin, vancomycin as prescribed -monitor CMP -preliminary blood culture Gram-positive cocci in cluster # suspected pneumonia Gram-positive versus Gram-negative --continue antibiotic ceftriaxone and azithromycin, vanco as prescribed -monitor CMP # Hypernatremia likely due to dehydration -monitor IV fluid as prescribed -monitor CMP # UTI with sepsis -continue ceftriaxone 1 g IV daily -pending urine CS # MITCHELL likely due to VMN -avoid dehydration and nephrotoxic drugs # NSTEMI Type 2 likely due to -monitor clinically # diabetes mellitus type 2 --insulin sliding scale as prescribed # history of hypertension -monitor blood pressure # hyperlipidemia Goals of care, Code status ; discussed with >15 minutes PUD prophylaxis: Pantoprazole DVT prophylaxis: Lovenox Plan discussed with Dr. Kruger , nursing staff, granddaughter Total time spent on patient evaluation, chart review, assessment and plan, discussion discussion >35 minutes Plan discussed with: Patient, Daughter (RN), Other My Orders My Orders Orders - BRAVO HUGGINS RESIDENT Procedure Category Date Status Time D5w 5% (Dextrose 5%) PHA 11/23/24 In Process 10:45 Glucose Blood PHA 11/23/24 In Process (Accu-Chek Comfort 12:00 Insulin R (Human) PHA 11/23/24 In Process (Insulin R) 12:00 Dextrose 50% Syringe PHA 11/23/24 In Process 10:45 Pt Request For Service PT 11/23/24 Logged 10:46 * Dietary Consult CONS 11/23/24 Transmitted 10:46 Urine Dip ED NURSING 11/23/24 Transmitted Insert David Catheter CAS 11/23/24 In Process 10:10 Vancomycin Per PHA 11/23/24 In Process Pharmacy 13:45 Cleanse Wound With CAS 11/23/24 In Process Mild Soap A 10:44 Azithromycin 500mg/ PHA 11/24/24 In Process 250ml (Zithromax 50 10:00 Communication Order ORDERS 11/24/24 Transmitted 04:00 Potassium Chl PHA 11/24/24 In Process 20meq/50ml (Potassium 06:30 Sodium Chl 0.9% PHA 11/24/24 In Process (Sodium Chloride) 06:30 Magnesium Sulfate PHA 11/24/24 In Process 1gm/100ml 07:00 Blood Culture JOSE 11/24/24 Logged 08:32 Dietary Evaluation Review Comments: 1. Disagree with current diet, liberalize to Full Liquid and D/C sodium/CHO restrictions 2. Encourage good oral intakes >50% of meals to meet est. needs 3. Monitor wt trends closely 4. Assist w/ tray set-up, 1:1 feeding as needed due to AMS 5. Will add Glucerna BID (220 kcal, 10 gm pro/carton) *Change to Ensure Enlive when diet liberalized Expected Outcomes/Goals: Improved nutritional status, weight maintenance. Date of Service: Nov 24, 2024 Billing Provider: STACY REID MD Common Visit Codes: [id number] INP/OBS CARE(HIGH) BRAVO HUGGINS RESIDENT Nov 24, 2024 09:01 STACY REID MD Nov 27, 2024 15:02
[2024-11-24] MEDS: POTASSIUM CHL 20MEQ/50ML 50 ML IV ONE (09:14)
[2024-11-24] MEDS: AZITHROMYCIN 500MG/ 250ML 250 ML IV SCH (10:00)
[2024-11-24] MEDS: SOD CHL 0.45% 1,000 ML IV SCH (10:00)
[2024-11-24] MEDS: VANCOMYCIN 750MG KIT 100 ML IV SCH (12:56)
--- NOTE | 2024-11-24 17:07 | DVHSR ---
APPROVED REPORT EXAM: Two-dimensional and M-mode echocardiogram with Doppler and color Doppler. Blood Pressure: 134/77 mmHg INDICATION rule out structural heart disease RISK FACTORS Height: 5'0, Weight: 119 DIMENSIONS LVDd3.1 (3.8-5.7cm)LA (2D)3.7 (1.9-4.0cm)Aortic Root2.8 (2.0-3.7cm) LVDs2.0 (2.5-4.0cm)LA (MM) (1.9-4.0cm)Aortic Cusp Exc1.5 (1.5-2.0cm) EF (%) 60.0 (55-70%)Rt. Atrium3.7 (1.9-4.0cm)Asc. Aorta2.8 cm IVSd1.3 (0.7-1.1cm)RV (D)3.0 (1.8-2.4cm) PWd0.6 (0.7-1.1cm) Mitral Valve MitralMitral Stenosis E wave0.58m/sMV Mean GR.mmHg A wave1.14m/sMV Peak GR.63mmHg E/A ratio0.52D MVAcm2 DECEL [id number] 1/2 Timems Aortic Valve Aortic ValveAortic Stenosis V10.97m/Nicki Mean GR.mmHg V21.06m/Nicki Peak GR.5mmHg LVOT Diameter1.9 (1.8-2.4cm)Doppler AVA2.59cm2 Pulmonic Valve V21.08m/s Tricuspid Valve TR Velocity2.40m/s [id number] Conclusion Sinus rhythm. Concentric LVH with left atrial enlargement. Mild dilation of the sinuses of Valsalva. Septal hyper trophy Valves are normal. Left ventricular systolic performance is preserved at 60% with normal RV function. Dopplers unremarkable. No pericardial effusion masses or vegetations.
[2024-11-25] VITALS (7 sets, daily range): BP systolic 104–141; BP diastolic 50–80; PULSE 64–74; RESP 17–22; TEMP 96.8–98.6; O2SAT 90–94
[2024-11-25 05:37] LABS: Basophils # (auto) 0 10 ^3/uL (0-0.2); Basophils % (auto) 0.5 % (0.0-2.0); Eosinophils # (auto) 0.1 10 ^3/uL (0-0.8); Eosinophils % (auto) 1.2 % (0.0-7.0); Hematocrit 38.6 % (36.0-46.0); Lymphocytes # (auto) 1.5 10 ^3/uL (0.4-5.4); Lymphocytes % (auto) 25.6 % (10.0-50.0); Mean Corpuscular Hemoglobin 29.9 pg (28.0-32.0); Mean Corpuscular Hgb Conc. 33.7 g/dL (32.0-36.0); Mean Corpuscular Volume 88.7 fL (80.0-100.0); Monocytes # (auto) 0.4 10 ^3/uL (0-1.3); Monocytes % (auto) 6.1 % (0.0-12.0); Neutrophils # (auto) 3.9 10 ^3/uL (1.6-8.6); Neutrophils % (auto) 66.6 % (37.0-80.0); Nucleated Red Blood Cells % 0.1 %; Platelet Count (auto) 157 10^3/uL (140-450); Red Blood Cells 4.35 10^6/uL (4.0-5.20); Red Cell Distribution Width 16.6 % (11.8-14.3); White Blood Cell 5.9 10^3/uL (4.4-10.8)
[2024-11-25 05:56] LABS: Sodium 143 mmol/L (136-145)
[2024-11-25 05:57] LABS: Anion Gap 11 (5-15); Carbon Dioxide 22 mmol/L (20-31)
[2024-11-25 06:02] LABS: BUN/Creatinine Ratio 15.2 (10.0-20.0); Blood Urea Nitrogen 10 mg/dL (9-23); Glucose 93 mg/dL (74-106)
[2024-11-25 06:07] LABS: Chloride 110 mmol/L (98-107); Potassium 3.5 mmol/L (3.5-5.1)
[2024-11-25 06:16] LABS: Calcium 8.9 mg/dL (8.7-10.4)
--- NOTE | 2024-11-25 09:48 | DVHPNRES ---
Progress Note Date Seen: Nov 25, 2024 Resident Creating Document: MARK CHI RESIDENT Medical Necessity Reason Pt with a Central, PICC or Fol: No The following are medically ne: PICC Line, David Catheter Subjective Review of Systems Patient is 89 years old female with past medical history of hypertension, diabetes mellitus, hyperlipidemia, dementia was brought in due to productive cough. As per family granddaughter patient has been having cough with greenish sputum for last 7 days associated with sweating, denied any fever, chest pain or shortness of breath. Patient was taken to clinic and where she was found to have hypoxemia and tachycardia. The so patient was referred to ER. Initial lab workup revealed polycythemia, hyponatremia sodium 158, MITCHELL with a serum creatinine 1.47, BUN 36, mildly elevated troponin I 39> 35>45, BNP 269, D-dimer 3.0, negative for COVID-19 and influenza type A and B. triglyceride 165, cholesterol 229, LDL 165. CXR left basilar atelectasis. PMH-hypertension, diabetes mellitus, hyperlipidemia, severe dementia PSH- Allergy- NKDA Personal History/ Social History- patient is more [place] came 1 month before, lives with her son Patient is nonverbal, noncommunicating at this moment Patient was seen today for clinical evaluation. Continued to have mild shortness of breath, with cough. Saturating 97% on room air. No fever, no chills, no chest pain, no motor weakness or sensory deficits. ROS Eyes: No Pain, No Vision change, No Conjunctivae inflammation, No Eyelid inflammation, No Other, No Redness ENT: No Ear pain, No Ear discharge, No Nose pain, No Nose discharge, No Nose congestion, No Mouth pain, No Mouth swelling, No Throat pain, No Throat swelling, No Other Cardiovascular: No Chest Pain, No Palpitations, No Orthopnea, No Paroxysmal Noc. Dyspnea, No Edema, No Lt Headedness, No Other Respiratory: Cough, No Dry, Shortness of breath, No SOB with excertion, No Wheezing, No Hemoptysis, No Pleuritic Pain, No Sputum, No Other Gastrointestinal: No Nausea, No Vomiting, No Abdominal Pain, No Diarrhea, No Constipation, No Melena, No Hematochezia, No Other Genitourinary: No Dysuria, No Frequency, No Incontinence, No Hematuria, No Retention, No Other Musculoskeletal: No other, No neck pain, No shoulder pain, No arm pain, No back pain, No hand pain, No leg pain, No foot pain Skin: No Rash, No Lesions, No Jaundice, No Bruising, No Other Objective vital signs Vital Sign Date Time Temp Pulse Resp B/P (MAP) Pulse Ox O2 Delivery O2 Flow Rate FiO2 11/25/24 09:00 98.2 70 18 104/56 (72) 90 98.2 11/24/24 20:00 Nasal Cannula* 2 28 Total Intake and Output 11/24/24 11/24/24 11/25/24 15:00 23:00 07:00 Intake Total 0 ml 0 ml Output Total 1250 ml Balance -1250 ml 0 ml medications Current Medications Medications Dose Ordered Sig/Clara Route Start Time Stop Time Status Last Admin Dose Admin Docusate Sodium 100 mg BIDPRN PRN PO 11/22/24 01:30 Nitroglycerin 0.4 mg Q5MINP PRN SL 11/22/24 01:30 Morphine Sulfate 2 mg Q30M PRN IV 11/22/24 01:30 Ceftriaxone Sodium 50 ml @ 100 mls/hr DAILY@09 IV 11/22/24 09:00 11/24/24 09:12 100 MLS/HR Pantoprazole Sodium 40 mg DAILY IV 11/22/24 10:00 11/24/24 09:13 40 MG Enoxaparin Sodium 30 mg BID SC 11/22/24 20:00 11/24/24 22:00 30 MG Diagnostic Test (Pha) 1 strip Q6HR 11/23/24 12:00 11/25/24 05:06 1 STRIP Insulin Human Regular Q6HR SC 11/23/24 12:00 11/24/24 12:00 3 UNITS Dextrose 50 ml UD PRN IV 11/23/24 10:45 Vancomycin HCl 0 ml @ 0 mls/hr UD IV 11/23/24 13:45 Azithromycin 250 ml @ 125 mls/hr DAILY IV 11/24/24 10:00 11/24/24 10:00 125 MLS/HR Sodium Chloride 1,000 ml @ 75 mls/hr [id number] IV 11/24/24 10:00 11/24/24 10:00 75 MLS/HR Vancomycin HCl 100 ml @ 100 mls/hr Q20H IV 11/24/24 12:00 11/25/24 08:18 100 MLS/HR Examination General Appearance: Cooperative. Well developed. Well nourished. NAD Head Exam: Normal inspection Neck Exam: Normal inspection. Non-tender. Normal alignment Pulmonary/Respiratory: Chest non-tender. No wheezing, no crackles, equal bilateral air entry. Cardiovascular/Chest: Regular rate and rhythm. No murmurs. No JVD. Peripheral Pulses: 2+ Radial (R). 2+ Radial (L). 2+ Pedal (R). 2+ Pedal (L) Abdominal Exam: Normal bowel sounds. Soft. Nontender. No hepatospenomegaly. No masses Ankle Exam: Negative ankle edema Lower extremities: Negative lower extremity edema Neuro/Mental Status: A&O x4. Coherent Thoughts/Psych: Normal thought pattern. Appropriate mood and affect. Good judgement and insight Appearance: In no acute distress Skin Exam: Normal inspection. Normal color. Warm. Dry laboratory and microbiology Laboratory Tests 11/25/24 05:04 Test 11/25/24 05:04 Range/Units Serum Glucose 93 74-106 mg/dL Microbiology Date/Time Source Procedure Growth Status 11/23/24 11:59 Voided Urine Urine Culture - Preliminary Resulted 11/22/24 12:59 Blood Blood Culture - Preliminary Resulted Problem List/Assessment/Plan Problem List/Assessment/Plan # sepsis likely due to pneumonia/UTI -continue antibiotic ceftriaxone and azithromycin, vancomycin as prescribed -blood culture one set came positive for Gram-positive cocci. Repeat blood culture again. # acute metabolic encephalopathy likely due to pneumonia/hyponatremia -continue antibiotic ceftriaxone and azithromycin, vancomycin as prescribed -monitor CMP -preliminary blood culture Gram-positive cocci in cluster # suspected pneumonia Gram-positive versus Gram-negative -continue antibiotic ceftriaxone and azithromycin, vanco as prescribed -monitor CMP # Hypernatremia likely due to dehydration -monitor IV fluid as prescribed -monitor CMP # UTI with sepsis -continue ceftriaxone 1 g IV daily -pending urine CS # MITCHELL likely due to VMN -avoid dehydration and nephrotoxic drugs -continue IV fluid # NSTEMI Type 2 likely due to -monitor clinically # diabetes mellitus type 2 -insulin sliding scale as prescribed # history of hypertension -monitor blood pressure # hyperlipidemia Goals of care, Code status ; discussed with >15 minutes PUD prophylaxis: Pantoprazole DVT prophylaxis: Lovenox Plan discussed with Dr. Bowden Plan discussed with: Patient, Other Dietary Evaluation Review Comments: 1. Disagree with current diet, liberalize to Full Liquid and D/C sodium/CHO restrictions 2. Encourage good oral intakes >50% of meals to meet est. needs 3. Monitor wt trends closely 4. Assist w/ tray set-up, 1:1 feeding as needed due to AMS 5. Will add Glucerna BID (220 kcal, 10 gm pro/carton) *Change to Ensure Enlive when diet liberalized Expected Outcomes/Goals: Improved nutritional status, weight maintenance. MARK CHI RESIDENT Nov 25, 2024 09:48
--- NOTE | 2024-11-25 14:15 | DVH ---
Procedure: CT CHEST WITHOUT CONTRAST Reason for study/Clinical History:pain PNA Comparison Study: None available at time of dictation. Exam Date: 11/25/2024 12:18 PM TECHNIQUE: Multidetector CT of the chest was performed from the lung apices to the upper abdomen with out the use of intravenous contract. Axial, coronal and sagittal multiplanar reformats were performed . RADIATION DOSE: CTDI volume is 11.06 mGy. Dose-length product is 347.33 mGy*cm The dose indicators for CT are the volume Computed Tomography (CT) Dose Index (CTDIvol) and the Dose Length Product (DLP), and are measured in units of mGy and mGy-cm, respectively. These indicators are not patient dose, but values generated from the CT scanner acquisition factors. The report includes radiation exposure data for exposures received during this examination. FINDINGS: Lower neck: Normal thyroid. Lungs: There are nonspecific ground-glass opacities, left greater than right. Bibasilar atelectasis. Trace bilateral pleural effusions. Heart/Vascular Structures: Normal heart size. No pericardial effusion. 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 Calcifications of the aortic root. Severe atherosclerotic vascular diseas e of the thoracic aorta and its branches. Lymph Nodes: No adenopathy Pleura: No pleural effusion or significant pneumothorax. Musculoskeletal: No acute osseous abnormality. Soft tissues: Normal. Upper abdomen: Limited portions of the upper abdomen are unremarkable. IMPRESSION: Nonspecific ground-glass opacities, left greater than right, suggestive of atypical pneumonia. Bibasi lar atelectasis. Trace bilateral pleural effusions. Radiation optimization: All CT scans at this facility use at least one of these dose optimization yeimy hniques: automated exposure control mA and/or kV adjustment per patient size (includes targeted exam s where dose is matched to clinical indication) or iterative reconstruction.
[2024-11-26] VITALS (7 sets, daily range): BP systolic 115–175; BP diastolic 56–79; PULSE 62–77; RESP 16–20; TEMP 97.5–98.8; O2SAT 90–98
[2024-11-26] MEDS: LOSARTAN POTASSIUM 25 MG TAB PO SCH (01:22)
[2024-11-26] MEDS ORDERED: LINA5TAB PO (01:52)
[2024-11-26] MEDS ORDERED: RIVA1CAP7 PO (01:52)
[2024-11-26] MEDS ORDERED: METF-371 PO (01:52)
[2024-11-26] MEDS ORDERED: CLOP75TA70 PO (01:52)
[2024-11-26] MEDS ORDERED: DAPA1TAB4 PO (01:52)
[2024-11-26] MEDS ORDERED: AML5T PO (01:52)
[2024-11-26] MEDS ORDERED: DONETAB6 PO (01:52)
[2024-11-26] MEDS ORDERED: OLAN1TAB7 PO (01:52)
[2024-11-26] MEDS ORDERED: SERT-206 PO (01:52)
[2024-11-26 03:11] LABS: Sodium 142 mmol/L (136-145)
[2024-11-26 03:12] LABS: Anion Gap 12 (5-15); Basophils # (auto) 0 10 ^3/uL (0-0.2); Basophils % (auto) 0.5 % (0.0-2.0); Calcium 9.4 mg/dL (8.7-10.4); Carbon Dioxide 22 mmol/L (20-31); Eosinophils # (auto) 0.1 10 ^3/uL (0-0.8); Eosinophils % (auto) 1.2 % (0.0-7.0); Hematocrit 47.6 % (36.0-46.0); Hemoglobin 14.9 g/dL (12.2-16.2); Lymphocytes # (auto) 1.4 10 ^3/uL (0.4-5.4); Lymphocytes % (auto) 23.7 % (10.0-50.0); Mean Corpuscular Hemoglobin 28.2 pg (28.0-32.0); Mean Corpuscular Hgb Conc. 31.4 g/dL (32.0-36.0); Mean Corpuscular Volume 89.9 fL (80.0-100.0); Monocytes # (auto) 0.4 10 ^3/uL (0-1.3); Monocytes % (auto) 7.3 % (0.0-12.0); Neutrophils % (auto) 67.3 % (37.0-80.0); Nucleated Red Blood Cells % 0.2 %; Platelet Count (auto) 191 10^3/uL (140-450); Red Blood Cells 5.29 10^6/uL (4.0-5.20); Red Cell Distribution Width 16.5 % (11.8-14.3); White Blood Cell 5.9 10^3/uL (4.4-10.8)
[2024-11-26 03:15] LABS: Chloride 108 mmol/L (98-107)
[2024-11-26 03:17] LABS: BUN/Creatinine Ratio 19.1 (10.0-20.0); Blood Urea Nitrogen 17 mg/dL (9-23); Glucose 160 mg/dL (74-106)
[2024-11-26] MEDS ORDERED: ENOXAPARIN SOD 40 MG/0.4 ML SYRINGE SC SCH (10:00)
[2024-11-26] MEDS: AZITHROMYCIN 250 MG TAB PO SCH (11:16)
--- NOTE | 2024-11-26 15:51 | DVHPNRES ---
Progress Note Date Seen: Nov 26, 2024 Resident Creating Document: MARK CHI RESIDENT Medical Necessity Reason Pt with a Central, PICC or Fol: No The following are medically ne: PICC Line, David Catheter Subjective Review of Systems Patient is 89 years old female with past medical history of hypertension, diabetes mellitus, hyperlipidemia, dementia was brought in due to productive cough. As per family granddaughter patient has been having cough with greenish sputum for last 7 days associated with sweating, denied any fever, chest pain or shortness of breath. Patient was taken to clinic and where she was found to have hypoxemia and tachycardia. The so patient was referred to ER. Initial lab workup revealed polycythemia, hyponatremia sodium 158, MITCHELL with a serum creatinine 1.47, BUN 36, mildly elevated troponin I 39> 35>45, BNP 269, D-dimer 3.0, negative for COVID-19 and influenza type A and B. triglyceride 165, cholesterol 229, LDL 165. CXR left basilar atelectasis. PMH-hypertension, diabetes mellitus, hyperlipidemia, severe dementia PSH- Allergy- NKDA Personal History/ Social History- patient is more [place] came 1 month before, lives with her son Patient is nonverbal, noncommunicating at this moment Patient was seen today for clinical evaluation. Continued to have mild shortness of breath, with cough. Saturating 97% on room air. Given rapid blood culture positive for Gram-positive cocci, under consultation has been done for CHEPE. ROS Eyes: No Pain, No Vision change, No Conjunctivae inflammation, No Eyelid inflammation, No Other, No Redness ENT: No Ear pain, No Ear discharge, No Nose pain, No Nose discharge, No Nose congestion, No Mouth pain, No Mouth swelling, No Throat pain, No Throat swelling, No Other Cardiovascular: No Chest Pain, No Palpitations, No Orthopnea, No Paroxysmal Noc. Dyspnea, No Edema, No Lt Headedness, No Other Respiratory: Cough, No Dry, Shortness of breath, No SOB with excertion, No Wheezing, No Hemoptysis, No Pleuritic Pain, No Sputum, No Other Gastrointestinal: No Nausea, No Vomiting, No Abdominal Pain, No Diarrhea, No Constipation, No Melena, No Hematochezia, No Other Genitourinary: No Dysuria, No Frequency, No Incontinence, No Hematuria, No Retention, No Other Musculoskeletal: No other, No neck pain, No shoulder pain, No arm pain, No back pain, No hand pain, No leg pain, No foot pain Skin: No Rash, No Lesions, No Jaundice, No Bruising, No Other Objective vital signs Vital Sign Date Time Temp Pulse Resp B/P (MAP) Pulse Ox O2 Delivery O2 Flow Rate FiO2 11/26/24 12:31 97.6 71 18 142/64 (90) 91 97.6 11/26/24 08:00 Room Air* 0 21 Total Intake and Output 11/25/24 11/25/24 11/26/24 15:00 23:00 07:00 Intake Total 400 ml 1040 ml 480 ml Output Total 250 ml 1700 ml Balance 400 ml 790 ml -1220 ml medications Current Medications Medications Dose Ordered Sig/Clara Route Start Time Stop Time Status Last Admin Dose Admin Docusate Sodium 100 mg BIDPRN PRN PO 11/22/24 01:30 Nitroglycerin 0.4 mg Q5MINP PRN SL 11/22/24 01:30 Morphine Sulfate 2 mg Q30M PRN IV 11/22/24 01:30 Ceftriaxone Sodium 50 ml @ 100 mls/hr DAILY@09 IV 11/22/24 09:00 11/26/24 11:17 100 MLS/HR Pantoprazole Sodium 40 mg DAILY IV 11/22/24 10:00 11/26/24 11:17 40 MG Diagnostic Test (Pha) 1 strip Q6HR 11/23/24 12:00 11/26/24 11:44 1 STRIP Insulin Human Regular Q6HR SC 11/23/24 12:00 11/26/24 11:43 6 UNITS Dextrose 50 ml UD PRN IV 11/23/24 10:45 Vancomycin HCl 0 ml @ 0 mls/hr UD IV 11/23/24 13:45 Vancomycin HCl 100 ml @ 100 mls/hr Q20H IV 11/24/24 12:00 11/26/24 04:53 100 MLS/HR Azithromycin 250 mg DAILY PO 11/26/24 10:00 11/29/24 09:59 11/26/24 11:16 250 MG Losartan Potassium 12.5 mg DAILY PO 11/26/24 01:00 11/26/24 01:22 12.5 MG Enoxaparin Sodium 50 mg BID SC 11/26/24 22:00 Examination General Appearance: Cooperative. Well developed. Well nourished. NAD Head Exam: Normal inspection Neck Exam: Normal inspection. Non-tender. Normal alignment Pulmonary/Respiratory: Chest non-tender. No wheezing, no crackles, equal bilateral air entry. Cardiovascular/Chest: Regular rate and rhythm. No murmurs. No JVD. Peripheral Pulses: 2+ Radial (R). 2+ Radial (L). 2+ Pedal (R). 2+ Pedal (L) Abdominal Exam: Normal bowel sounds. Soft. Nontender. No hepatospenomegaly. No masses Ankle Exam: Negative ankle edema Lower extremities: Negative lower extremity edema Neuro/Mental Status: A&O x4. Coherent Thoughts/Psych: Normal thought pattern. Appropriate mood and affect. Good judgement and insight Appearance: In no acute distress Skin Exam: Normal inspection. Normal color. Warm. Dry laboratory and microbiology Laboratory Tests 11/26/24 02:44 Test 11/26/24 02:44 Range/Units Serum Glucose 160 H 74-106 mg/dL Microbiology Date/Time Source Procedure Growth Status 11/24/24 10:43 Blood Blood Culture - Preliminary NO GROWTH AFTER 48 HOURS OF INCUBATION. Resulted 11/23/24 11:59 Voided Urine Urine Culture - Final Complete Problem List/Assessment/Plan Problem List/Assessment/Plan # sepsis likely due to pneumonia/UTI -continue antibiotic ceftriaxone and azithromycin, vancomycin as prescribed -blood culture one set came positive for Gram-positive cocci. Repeat blood culture again. # Gram-positive bacteremia -continue IV antibiotic ceftriaxone and vancomycin. -cardiology consultation done for CHEPE. # acute metabolic encephalopathy likely due to pneumonia/hyponatremia -continue antibiotic ceftriaxone and azithromycin, vancomycin as prescribed -monitor CMP -preliminary blood culture Gram-positive cocci in cluster # suspected pneumonia Gram-positive versus Gram-negative -continue antibiotic ceftriaxone and azithromycin, vanco as prescribed -monitor CMP # Hypernatremia likely due to dehydration -monitor IV fluid as prescribed -monitor CMP # UTI with sepsis -continue ceftriaxone 1 g IV daily -pending urine CS # MITCHELL likely due to VMN -avoid dehydration and nephrotoxic drugs -continue IV fluid # NSTEMI Type 2 likely due to -monitor clinically # diabetes mellitus type 2 -insulin sliding scale as prescribed # history of hypertension -monitor blood pressure # hyperlipidemia Goals of care, Code status ; discussed with >15 minutes PUD prophylaxis: Pantoprazole DVT prophylaxis: Lovenox Plan discussed with Dr. Bowden Plan discussed with: Patient, Other My Orders My Orders Orders - MARK CHI RESIDENT Procedure Category Date Status Time Blood Culture JOSE 11/25/24 In Process 16:40 * Cardiology Consult CONS 11/26/24 Transmitted 14:13 Ct Ab Pel Wo Con-No CT 11/26/24 Taken Oral Or Iv 14:13 Dietary Evaluation Review Comments: 1. Disagree with current diet, liberalize to Full Liquid and D/C sodium/CHO restrictions 2. Encourage good oral intakes >50% of meals to meet est. needs 3. Monitor wt trends closely 4. Assist w/ tray set-up, 1:1 feeding as needed due to AMS 5. Will add Glucerna BID (220 kcal, 10 gm pro/carton) *Change to Ensure Enlive when diet liberalized Expected Outcomes/Goals: Improved nutritional status, weight maintenance. Date of Service: Nov 26, 2024 Billing Provider: AZAR BOWDEN MD Common Visit Codes: [id number] INP/OBS CARE(HIGH) MARK CHI RESIDENT Nov 26, 2024 15:51 AZAR BOWDEN MD Nov 27, 2024 09:41
--- NOTE | 2024-11-26 15:56 | DVH ---
Exam: CT CT AB PEL WO CON-NO ORAL OR IV History: persistent bacteremia Comparison Study: None available at time of dictation. TECHNIQUE: Multidetector CT of the abdomen was performed from lung bases to pubic symphysis. Imaging was performed without IV contrast. Axial, coronal and sagittal multiplanar reformats were obtained fr om the axial data set by the technologist. Radiation Dose Information: CT Dose: CTDI volume is 9.55 mGy. Dose-length product is 496.7 mGy*cm FINDINGS: Evaluation of solid organs is limited due to lack of intravenous contrast use. Findings: Lung Bases: Patchy airspace disease posterior costophrenic angles left worse than right.. Normal hea rt size. No pericardial effusion. Trace pleural effusions. Liver: The liver is normal in size. No focal lesions. Gallbladder and Biliary Tree: Unremarkable Spleen: Unremarkable Pancreas: The pancreas is grossly normal in appearance. Adrenal Glands: Unremarkable Kidneys: Kidneys are grossly normal without calculi or hydronephrosis. Bladder: David catheter in the bladder Bowel: The stomach is grossly normal in appearance. Small bowel and colon are normal in caliber and d istribution. The appendix is not visualized; however, no secondary findings of acute appendicitis id entified. Ascites: Absent Lymphadenopathy: No mesenteric, retroperitoneal or periportal lymphadenopathy. Abdominal Wall and Mesentery: Unremarkable. Vasculature: The visualized abdominal aorta is normal in size and caliber. Evaluation of abdominal a nd pelvic vessels is limited due to lack of intravenous contrast. Pelvic Organs: Unremarkable Musculoskeletal: No aggressive focal bony lesions, acute fractures or dislocation. Soft tissues: Unremarkable IMPRESSION: 1. Sigmoid diverticulosis. No free air or free fluid. 2. No calcified gallstones 3. No nephrolithiasis or hydronephrosis 4. No findings of bowel obstruction. 5. David catheter in the bladder. 6. 7 x 5.2 cm stool-filled rectum. Radiation optimization: All CT scans at this facility use at least one of these dose optimization te chniques: automated exposure control mA and/or kV adjustment per patient size (includes targeted exa ms where dose is matched to clinical indication) or iterative reconstruction. HS:Y
--- NOTE | 2024-11-26 16:28 | DVHINCON2 ---
TONY OBREGON [facility] 11/26/24 1628: Date Seen: Nov 26, 2024 Referring Physician MD Tena Reason for Consultation Rule out infective endocarditis History of Present Illness This is an 89-year-old female who presented to emergency room with a chief complaint of a productive cough. At time of assessment, the patient was found nonverbal. Information obtained from family at bedside including grandchildren who reported the patient developed a productive cough with green sputum and worsening mental status from her baseline dementia. She was referred to the nearest emergency room by her PCP given acute hypoxemia. Upon arrival to the emergency room she underwent a 12 lead electrocardiogram revealing an atrial fibrillation rhythm with rapid ventricular rate in the 160s bpm. At time of assessment, the patient was found in a sinus rhythm with no cardiac technologist. Cardiology consulted in the setting of persistent bacteremia with primary care team requesting a transesophageal echocardiogram to rule out infective endocarditis. Per family, there is no history of cardiac disease, tachyarrhythmias, or follow-ups in the outpatient setting with a porter head. Significant medical history includes hypertension, dyslipidemia, [id number] diabetes mellitus, and dementia. Of note, the patient takes Plavix at home for unknown diagnosis. Per family her medications have been prescribed in [place] as her kids care for her there and here in the [facility]. Past Medical History Past medical history reviewed. No other significant than mentioned above. Past Surgical History Past Surgical history reviewed. No other significant than mentioned above. Family History: Patient reports no known family medical history. Family History Family history reviewed. Social History Denies the use of illicit drugs, alcohol, or tobacco use. Allergies: Coded Allergies: Lactose Intolerance (GI) (Verified Allergy, Mild, 11/27/24) diarrhea Home Meds Reported Medications Olanzapine (OLANZAPINE) 5 Mg Tab, 1 TAB PO QPM, #30 TAB 2 Refills 11/26/24 Sertraline Hcl (Sertraline Hcl) 50 Mg Tab, 1 TAB PO DAILY, #30 TAB 5 Refills 11/26/24 Donepezil Hydrochloride (DONEPEZIL HCL) 10 Mg Tab, 10 MG PO DAILY, TAB 11/26/24 Clopidogrel Bisulfate (CLOPIDOGREL) 75 Mg Tab, 1 TAB PO DAILY, #90 TAB 1 Refill 11/26/24 Linagliptin Base (TRADJENTA) 5 Mg Tab, 1 TAB PO DAILY, #90 TAB 1 Refill 11/26/24 Dapagliflozin Propanediol (Farxiga) 10 Mg Tab, 10 MG PO DAILY, TAB 11/26/24 Metformin Hydrochloride (Metformin Hcl) 850 Mg Tab, 1 TAB PO BID, #60 TAB 5 Refills 11/26/24 Amlodipine Besylate (NORVASC TABLET) 5 Mg Tb, 1 TAB PO BID, #30 TAB 5 Refills 11/26/24 Rivastigmine Tartrate (Rivastigmine Tartrate) 6 Mg Cap, 18 MG PO DAILY, CAP 11/26/24 Home Meds Home medications reviewed. Current Medications Current Medications Medications (Trade) Dose Ordered Sig/Clara Route PRN Reason Start Time Stop Time Status Last Admin Azithromycin (Zithromax Tablet) 250 mg DAILY PO 11/26/24 10:00 11/29/24 09:59 11/26/24 11:16 Losartan Potassium (Cozaar Tablet) 12.5 mg DAILY PO 11/26/24 01:00 11/26/24 01:22 Enoxaparin Sodium (Lovenox) 40 mg DAILY SC 11/26/24 10:00 11/26/24 10:39 DC Enoxaparin Sodium (Lovenox) 50 mg BID SC 11/26/24 22:00 Review of Systems Constitutional: No symptom reported Ears, Nose, & Throat: No symptom reported Eyes: No symptom reported Neurological: ALOC Pulmonary/Respiratory: Productive cough with green sputum Cardiovascular: No symptom reported Gastrointestinal: No symptom reported Genitourinary: No symptom reported Musculoskeletal: No symptom reported Skin: No symptom reported Psychiatric: No symptom reported Endocrine: No symptom reported Hemotologic/Lymphatic: No symptom reported Vital Signs Vital Signs Date Time Temp Pulse Resp B/P (MAP) Pulse Ox O2 Delivery O2 Flow Rate FiO2 11/26/24 12:31 97.6 71 18 142/64 (90) 91 97.6 11/26/24 08:00 Room Air* 0 21 Physical Exam General Appearance: Nonverbal. Lying in a position. In no acute distress Head Exam: Normal inspection Neck Exam: Normal inspection. Normal alignment Pulmonary/Respiratory: Diminished bilateral breath sounds Cardiovascular/Chest: Regular rate and rhythm. S1, S2. NSR. No murmurs. No JVD. Peripheral Pulses: 2+ Radial (R). 2+ Radial (L). 2+ Pedal (R). 2+ Pedal (L) Abdominal Exam: Normal bowel sounds. Soft. Nontender. No hepatospenomegaly. No masses Ankle Exam: Negative ankle edema Lower extremities: Negative lower extremity edema Neuro/Mental Status: Withdrawn. Nonverbal Thoughts/Psych: Unable to assess at this time Appearance: In no acute distress Skin Exam: Normal inspection. Normal color. Warm. Dry Labs/Diagnostic Data Labs Test 11/26/24 11:34 11/26/24 02:44 11/24/24 05:28 11/23/24 11:55 Range/Units POC Glucose 264 H 70-106 mg/dl White Blood Count 5.9 4.4-10.8 10^3/uL Red Blood Count 5.29 H 4.0-5.20 10^6/uL Hemoglobin 14.9 12.2-16.2 g/dL Hematocrit 47.6 #H 36.0-46.0 % Mean Corpuscular Volume 89.9 80.0-100.0 fL Mean Corpuscular Hemoglobin 28.2 28.0-32.0 pg Mean Corpuscular Hemoglobin Concent 31.4 L 32.0-36.0 g/dL Red Cell Distribution Width 16.5 H 11.8-14.3 % Platelet Count 191 140-450 10^3/uL Mean Platelet Volume 10.8 6.9-10.8 fL Neutrophils (%) (Auto) 67.3 37.0-80.0 % Lymphocytes (%) (Auto) 23.7 10.0-50.0 % Monocytes (%) (Auto) 7.3 0.0-12.0 % Eosinophils (%) (Auto) 1.2 0.0-7.0 % Basophils (%) (Auto) 0.5 0.0-2.0 % Neutrophils # (Auto) 4.0 1.6-8.6 10 ^3/uL Lymphocytes # (Auto) 1.4 0.4-5.4 10 ^3/uL Monocytes # (Auto) 0.4 0-1.3 10 ^3/uL Eosinophils # (Auto) 0.1 0-0.8 10 ^3/uL Basophils # (Auto) 0 0-0.2 10 ^3/uL Nucleated Red Blood Cells 0.2 % Sodium Level 142 136-145 mmol/L Potassium Level 4.0 3.5-5.1 mmol/L Chloride Level 108 H 98-107 mmol/L Carbon Dioxide Level 22 20-31 mmol/L Anion Gap 12 5-15 Blood Urea Nitrogen 17 9-23 mg/dL Creatinine 0.89 # 0.550-1.02 mg/dL Glomerular Filtration Rate Calc 62 >90 mL/min BUN/Creatinine Ratio 19.1 10.0-20.0 Serum Glucose 160 H 74-106 mg/dL Calcium Level 9.4 8.7-10.4 mg/dL Vancomycin Level Trough 13.7 H 5-10 ug/mL Magnesium Level 1.6 1.6-2.6 mg/dL Total Bilirubin 0.5 0.2-1.0 mg/dL Aspartate Amino Transferase (AST) 29 13-40 U/L Alanine Aminotransferase (ALT) 19 7-40 U/L Alkaline Phosphatase 51 46-116 U/L Total Protein 5.9 5.7-8.2 g/dL Albumin 3.3 3.2-4.8 g/dL Random Vancomycin Level 10.4 H 5-10 ug/mL Urine Color Light-yellow Yellow Urine Clarity Clear Clear Urine pH 5.5 5.0-9.0 Urine Specific [place] 1.018 1.001-1.035 Urine Protein Negative Negative Urine Ketones Negative Negative Urine Blood Trace H Negative /uL Urine Nitrite Negative Negative Urine Bilirubin Negative Negative Urine Urobilinogen Normal Negative mg/dL Urine Leukocyte Esterase 3+ Negative /uL Urine RBC 10 0 - 4 /hpf Urine Microscopic WBC 77 H 0-5 /HPF Urine Squamous Epithelial Cells Few <5 /hpf Urine Bacteria None seen None Seen /hpf Urine Mucus Few None Seen Urine Glucose 4+ H Normal mg/dL Test 11/22/24 10:10 11/22/24 09:27 11/22/24 00:10 11/21/24 22:00 Range/Units Blood Gas Specimen Type Arterial Blood Gas Sample Site Left radial Blood Gas Patient Temperature 37.0 Arterial Blood Date Drawn [id number] Arterial Blood pH 7.436 7.350-7.450 Arterial Blood Partial Pressure CO2 38.6 32.0-45.0 mmHg Arterial Blood Partial Pressure O2 58.2 L 83.0-108.0 mmHg Arterial Blood HCO3 25.4 21.0-28.0 mmol/L Arterial Blood Oxygen Saturation 89.5 L 94.0-98.0 % Arterial Blood Base Excess 1.3 -2.0-3.0 mmol/L Arterial Blood Oxyhemoglobin 88.2 L 94.0-98.0 % Arterial Blood Carboxyhemoglobin 1.0 0.5-1.5 % Arterial Blood Methemoglobin 0.5 0.0-1.5 % Cortez Test Yes Blood Gas Total Hemoglobin 16.10 H 12.0-16.0 g/dL Blood Gas Modality Nasal cannula FiO2 % 40.0 Erythrocyte Sedimentation Rate 29 H 0-20 mm/hr D-Dimer, Quantitative 3.00 H 0.0-0.49 mg/L FEU Hemoglobin A1c 6.7 H <5.7 % A1C Iron Level 86 50-170 ug/dL Total Iron Binding Capacity 340 250-425 ug/dL Percent Iron Saturation 25.3 15-50 % Ferritin 46.0 10-291 ng/mL C-Reactive Protein High Sensitivity 2.38 H <1.0 mg/dL Triglycerides Level 165 H < 150 mg/dL Cholesterol Level 229 H < 200 mg/dL LDL Cholesterol 165 H < 100 mg/dL HDL Cholesterol 39 L 40-59 mg/dL Thyroid Stimulating Hormone (TSH) 1.81 0.55-4.78 uIU/mL Influenza Type A Antigen Negative Negative Influenza Type B Antigen Negative Negative SARS-CoV-2 Antigen (Rapid) Negative NEGATIVE Troponin I High Sensitivity 41 *H </=34 ng/L Test 11/21/24 18:59 Range/Units B-Type Natriuretic Peptide 269.12 0-100 pg/mL Microbiology Date/Time Source Procedure Growth Status 11/24/24 10:43 Blood Blood Culture - Preliminary NO GROWTH AFTER 48 HOURS OF INCUBATION. Resulted 11/23/24 11:59 Voided Urine Urine Culture - Final Complete Assessment Sepsis with PNA/UTI Persistent bacteremia rule out infective endocarditis Atrial fibrillation with RVR, now NSR, newly diagnosed Acute metabolic encephalopathy rule out acute CVA NSTEMI, likely type 2 secondary to above Cly-[id number]-[id number] diabetes mellitus Hypertension Dyslipidemia Dementia Plan/Recommendation (Dr. Jha) Family at bedside offered a transesophageal echocardiogram to rule out infective endocarditis. The would like to discuss with other family members before making an informed decision. All risks and benefits of the procedure were discussed in detail. In the meantime, upgrade to telemetry given newly diagnosed atrial fibrillation. Initiate low-dose metoprolol and uptitrate as tolerated. Currently on therapeutic Lovenox. Given the patient's advanced age with a history of dementia and high risk for falls it will be prudent to avoid DOAC therapy. She can benefit from an outpatient event monitor to further delineate need for anticoagulation. Obtain a head CT to rule out acute neurological processes given ALOC. We will reassess on family's decision tomorrow. Thank you for allowing us to participate in this patient's care. Please call if you have any questions or concerns. This medical document was created using an electronic medical record system with voice recognition software and computerized dictation system. Although this document has been carefully reviewed, there might still be some phonetic and typographical errors. Occasional wrong-word or ``sound-alike substitutions may have occurred due to the inherent limitations of voice recognition software. These areas are purely typographical due to imperfections of the software programs and do not reflect any compromise in the patient's medical care. Please read the chart carefully and recognize, using context, where these substitutions have occurred. Plan discussed with: Other [facility] Physical activity limitations: NA Date of Service: Nov 26, 2024 Billing Provider: TONY OBREGON [facility] Cardiology Common Codes: [id number] INP/OBS CARE (High) JESSIE JHA MD 11/27/24 1545: Family History: Patient reports no known family medical history. Allergies: Coded Allergies: Lactose Intolerance (GI) (Verified Allergy, Mild, 11/27/24) diarrhea Home Meds Reported Medications Olanzapine (OLANZAPINE) 5 Mg Tab, 1 TAB PO QPM, #30 TAB 2 Refills 11/26/24 Sertraline Hcl (Sertraline Hcl) 50 Mg Tab, 1 TAB PO DAILY, #30 TAB 5 Refills 11/26/24 Donepezil Hydrochloride (DONEPEZIL HCL) 10 Mg Tab, 10 MG PO DAILY, TAB 11/26/24 Clopidogrel Bisulfate (CLOPIDOGREL) 75 Mg Tab, 1 TAB PO DAILY, #90 TAB 1 Refill 11/26/24 Linagliptin Base (TRADJENTA) 5 Mg Tab, 1 TAB PO DAILY, #90 TAB 1 Refill 11/26/24 Dapagliflozin Propanediol (Farxiga) 10 Mg Tab, 10 MG PO DAILY, TAB 11/26/24 Metformin Hydrochloride (Metformin Hcl) 850 Mg Tab, 1 TAB PO BID, #60 TAB 5 Refills 11/26/24 Amlodipine Besylate (NORVASC TABLET) 5 Mg Tb, 1 TAB PO BID, #30 TAB 5 Refills 11/26/24 Rivastigmine Tartrate (Rivastigmine Tartrate) 6 Mg Cap, 18 MG PO DAILY, CAP 11/26/24 Plan/Recommendation 89f WITH DEMENTIA REPEAT BLOOD CX IS - WOULD AVOID CHEPE FOR NOW, CONSIDER IF INFECTION WORSENS PT MAY NOT TOLERATE CHEPE GIVEN DEMENTIA Plan discussed with: Other (rn) TONY OBREGON Nov 26, 2024 16:28 JESSIE JHA MD Nov 27, 2024 15:45
--- NOTE | 2024-11-26 17:02 | DVH ---
CT HEAD WITHOUT CONTRAST INDICATION: ALOC with new onset a-fib : 89 old Female ALOC with new onset a-fib EXAM DATE: 11/26/2024 04:19 PM COMPARISON: None RADIATION DOSE: CTDIvol: 53.89 mGy, DLP: 973.47 mGy*cm PROCEDURE: CT scans of the head were obtained from the vertex to the skull base. Sagittal and coronal reconstructions were provided. All CT scans at this medical facility are performed using dose modulation techniques as appropriate t o a performed exam including the following: Automated exposure control was utilized; adjustment of th e MA and/or KV according to patient size; and use of iterative reconstruction technique. 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 There is sulcal and ventricular prominence. The brain otherwise shows normal morphology an d mckay-white matter differentiation, without intracranial hemorrhage, extra-axial fluid collection, m ass effect or acute large vessel infarct.The basal cisterns are patent. The skull and visible facial bones are intact. The paranasal sinuses, mastoid air cells and middle ear cavities are well-aerated. The soft tissues of the scalp are unremarkable. 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 No acute intracranial abnormality.
[2024-11-26] MEDS ORDERED: guaiFENesin-DM 100/10mg/5ml SYR PO PRN (20:45)
[2024-11-26] MEDS: guaiFENesin-DM 100/10mg/5ml SYR PO PRN (22:46)
[2024-11-26] MEDS: ENOXAPARIN SOD 60 MG/0.6 ML SYRINGE SC SCH (22:46)
[2024-11-26] MEDS: VANCOMYCIN 750MG KIT 100 ML IV SCH (22:48)
[2024-11-26] MEDS: METOPROLOL TARTRATE 25 MG TAB PO SCH (22:48)
[2024-11-27] VITALS (8 sets, daily range): BP systolic 127–153; BP diastolic 60–75; PULSE 62–71; RESP 16–20; TEMP 98.1–99.1; O2SAT 91–95
[2024-11-27 07:36] LABS: Basophils # (auto) 0 10 ^3/uL (0-0.2); Basophils % (auto) 0.3 % (0.0-2.0); Eosinophils # (auto) 0.2 10 ^3/uL (0-0.8); Eosinophils % (auto) 1.8 % (0.0-7.0); Hematocrit 42.4 % (36.0-46.0); Lymphocytes # (auto) 1.7 10 ^3/uL (0.4-5.4); Lymphocytes % (auto) 18.2 % (10.0-50.0); Mean Corpuscular Hemoglobin 29.1 pg (28.0-32.0); Mean Corpuscular Volume 88.3 fL (80.0-100.0); Monocytes # (auto) 0.5 10 ^3/uL (0-1.3); Monocytes % (auto) 5.9 % (0.0-12.0); Neutrophils # (auto) 6.7 10 ^3/uL (1.6-8.6); Neutrophils % (auto) 73.8 % (37.0-80.0); Platelet Count (auto) 170 10^3/uL (140-450); Red Cell Distribution Width 16.1 % (11.8-14.3); White Blood Cell 9.1 10^3/uL (4.4-10.8)
--- NOTE | 2024-11-27 10:11 | DVHPN2 ---
[facility] 11/27/24 1011: Consult Progress Note Date Seen: Nov 27, 2024 Subjective Other Systems: No overnight cardiac events reported Objective vital signs Vital Sign Date Time Temp Pulse Resp B/P (MAP) Pulse Ox O2 Delivery O2 Flow Rate FiO2 11/27/24 05:00 98.9 71 17 149/70 (96) 91 98.9 11/26/24 20:00 Room Air* 0 21 Total Intake and Output 11/26/24 11/26/24 11/27/24 15:00 23:00 07:00 Intake Total 230 ml 460 ml Output Total 1850 ml 400 ml Balance -1620 ml 60 ml medications Current Medications Medications Dose Ordered Sig/Clara Route Start Time Stop Time Status Last Admin Dose Admin Docusate Sodium 100 mg BIDPRN PRN PO 11/22/24 01:30 Nitroglycerin 0.4 mg Q5MINP PRN SL 11/22/24 01:30 Morphine Sulfate 2 mg Q30M PRN IV 11/22/24 01:30 Ceftriaxone Sodium 50 ml @ 100 mls/hr DAILY@09 IV 11/22/24 09:00 11/26/24 11:17 100 MLS/HR Pantoprazole Sodium 40 mg DAILY IV 11/22/24 10:00 11/26/24 11:17 40 MG Diagnostic Test (Pha) 1 strip Q6HR 11/23/24 12:00 11/27/24 05:49 1 STRIP Insulin Human Regular Q6HR SC 11/23/24 12:00 11/27/24 00:40 6 UNITS Dextrose 50 ml UD PRN IV 11/23/24 10:45 Vancomycin HCl 0 ml @ 0 mls/hr UD IV 11/23/24 13:45 Azithromycin 250 mg DAILY PO 11/26/24 10:00 11/29/24 09:59 11/26/24 11:16 250 MG Enoxaparin Sodium 50 mg BID SC 11/26/24 22:00 11/26/24 22:46 50 MG Vancomycin HCl 100 ml @ 100 mls/hr Q18H IV 11/26/24 22:00 11/26/24 22:48 100 MLS/HR Metoprolol Tartrate 12.5 mg BID PO 11/26/24 22:00 11/26/24 22:48 12.5 MG Guaifenesin/ Dextromethorphan 5 ml Q6HR PRN PO 11/26/24 21:15 11/26/24 22:46 5 ML Examination: LUNGS:Normal, CVS:Normal, NEURO:Normal (Baseline dementia per family) laboratory and microbiology Laboratory Tests 11/27/24 05:54 11/26/24 02:44 Test 11/26/24 02:44 Range/Units Serum Glucose 160 H 74-106 mg/dL Problem List/Assessment/Plan Problem List/Assessment/Plan Sepsis with PNA/UTI Persistent bacteremia rule out infective endocarditis Atrial fibrillation with RVR, now NSR, newly diagnosed Acute metabolic encephalopathy NSTEMI, likely type 2 secondary to above [id number] diabetes mellitus Hypertension Dyslipidemia Dementia Plan/Recommendation (Dr. Jha) Family at bedside offered a transesophageal echocardiogram to rule out infective endocarditis. They agree to proceed with intervention on 11/28/24. Continue low-dose metoprolol and uptitrate as tolerated. Currently on therapeutic Lovenox. Given the patient's advanced age with a history of dementia and high risk for falls it will be prudent to avoid DOAC therapy. She can benefit from an outpatient event monitor to further delineate need for anticoagulation. In the setting of an unremarkable JOSÉ, there is no further cardiac work-up indicated. Thank you for allowing us to participate in this patient's care. This medical document was created using an electronic medical record system with voice recognition software and computerized dictation system. Although this document has been carefully reviewed, there might still be some phonetic and typographical errors. Occasional wrong-word or ``sound-alike substitutions may have occurred due to the inherent limitations of voice recognition software. These areas are purely typographical due to imperfections of the software programs and do not reflect any compromise in the patient's medical care. Please read the chart carefully and recognize, using context, where these substitutions have occurred. Plan discussed with: Patient, Daughter, Son, Other Dietary Evaluation Review Comments: 1. Disagree with current diet, liberalize to Full Liquid and D/C sodium/CHO restrictions 2. Encourage good oral intakes >50% of meals to meet est. needs 3. Monitor wt trends closely 4. Assist w/ tray set-up, 1:1 feeding as needed due to AMS 5. Will add Glucerna BID (220 kcal, 10 gm pro/carton) *Change to Ensure Enlive when diet liberalized Expected Outcomes/Goals: Improved nutritional status, weight maintenance. Date of Service: Nov 27, 2024 Billing Provider: TONY OBREGON Cardiology Common Codes: 46943-[id number] INP/OBS CARE(Mod) JESSIE JHA MD 11/27/24 1551: Consult Progress Note Problem List/Assessment/Plan Problem List/Assessment/Plan no plan for josé , given age and dementia, cont abx and if repeat cx continuous + then consider TONY OBREGON Nov 27, 2024 10:11 JESSIE JHA MD Nov 27, 2024 15:51
--- NOTE | 2024-11-27 16:35 | DVHPNRES ---
Progress Note Date Seen: Nov 27, 2024 Resident Creating Document: SHEA PRITCHETT RESIDENT Has the PT tested + for MRSA If YES, has PT been informed?: No Medical Necessity Reason Pt with a Central, PICC or Fol: No The following are medically ne: PICC Line, David Catheter Subjective Review of Systems Patient is 89 years old female with past medical history of hypertension, diabetes mellitus, hyperlipidemia, dementia was brought in due to productive cough. As per family granddaughter patient has been having cough with greenish sputum for last 7 days associated with sweating, denied any fever, chest pain or shortness of breath. Patient was taken to clinic and where she was found to have hypoxemia and tachycardia. The so patient was referred to ER. Initial lab workup revealed polycythemia, hyponatremia sodium 158, MITCHELL with a serum creatinine 1.47, BUN 36, mildly elevated troponin I 39> 35>45, BNP 269, D-dimer 3.0, negative for COVID-19 and influenza type A and B. triglyceride 165, cholesterol 229, LDL 165. CXR left basilar atelectasis. Patient seen and examined at bedside. The patient has advanced dementia and is not able to answer clearly to all the questions. Grandson was present at bedside answering and providing information from the patient. This morning, the patient was on 2 L of oxygen through nasal cannula and was titrated down to room air which patient has been tolerating fine. Initial thought was to do a CHEPE tomorrow to rule out endocarditis but Cardiology stated that there is no need to do a CHEPE at this point, they recommended to repeat cultures at this time based on patient age and underlying dementia. ROS unable to obtain due to patient's current status, dementia Objective vital signs Vital Sign Date Time Temp Pulse Resp B/P (MAP) Pulse Ox O2 Delivery O2 Flow Rate FiO2 11/27/24 13:00 98.3 71 18 153/69 (97) 93 98.3 11/27/24 08:00 Room Air* 0 21 Total Intake and Output 11/26/24 11/26/24 11/27/24 15:00 23:00 07:00 Intake Total 230 ml 460 ml Output Total 1850 ml 400 ml Balance -1620 ml 60 ml medications Current Medications Medications Dose Ordered Sig/Clara Route Start Time Stop Time Status Last Admin Dose Admin Docusate Sodium 100 mg BIDPRN PRN PO 11/22/24 01:30 Nitroglycerin 0.4 mg Q5MINP PRN SL 11/22/24 01:30 Morphine Sulfate 2 mg Q30M PRN IV 11/22/24 01:30 Ceftriaxone Sodium 50 ml @ 100 mls/hr DAILY@09 IV 11/22/24 09:00 11/27/24 10:23 100 MLS/HR Pantoprazole Sodium 40 mg DAILY IV 11/22/24 10:00 11/27/24 10:22 40 MG Diagnostic Test (Pha) 1 strip Q6HR 11/23/24 12:00 11/27/24 12:24 1 STRIP Insulin Human Regular Q6HR SC 11/23/24 12:00 11/27/24 12:00 6 UNITS Dextrose 50 ml UD PRN IV 11/23/24 10:45 Vancomycin HCl 0 ml @ 0 mls/hr UD IV 11/23/24 13:45 Azithromycin 250 mg DAILY PO 11/26/24 10:00 11/29/24 09:59 11/27/24 10:22 250 MG Enoxaparin Sodium 50 mg BID SC 11/26/24 22:00 11/27/24 10:24 50 MG Vancomycin HCl 100 ml @ 100 mls/hr Q18H IV 11/26/24 22:00 11/26/24 22:48 100 MLS/HR Metoprolol Tartrate 12.5 mg BID PO 11/26/24 22:00 11/27/24 10:22 12.5 MG Guaifenesin/ Dextromethorphan 5 ml Q6HR PRN PO 11/26/24 21:15 11/27/24 11:18 5 ML Examination Physical Examination General: Patient alert but not oriented due to dementia. Patient following commands. HEENT: Normocephalic, atraumatic, moist mucous membranes Respiratory/pulmonary: Clear lungs bilaterally, no associated crackles or wheezes. Cardiovascular: Normal heart sounds S1 and S2 with no associated murmurs Abdomen: Abdomen nondistended, there is no pain to palpation in any of the abdominal quadrants, no palpable masses. Extremities: There is no peripheral edema present at the lower extremities. Peripheral Pulses: 3+ Radial (R). 3+ Radial (L). 3+ Dorsalis pedis (R). 3+ Dorsalis pedis(L) Skin: No rashes or pruritus, there is no sacral edema present at this time. Neurological: Intact cranial nerves with no focal neurologic deficits laboratory and microbiology Laboratory Tests 11/27/24 05:54 11/26/24 02:44 Test 11/26/24 02:44 Range/Units Serum Glucose 160 H 74-106 mg/dL Microbiology Date/Time Source Procedure Growth Status 11/25/24 17:54 Blood Blood Culture - Preliminary NO GROWTH AFTER 24 HOURS OF INCUBATION. Resulted 11/23/24 11:59 Voided Urine Urine Culture - Final Complete Problem List/Assessment/Plan Problem List/Assessment/Plan Assessment/Plan sepsis likely due to pneumonia, UTI, Bacteremia -continue antibiotic ceftriaxone and azithromycin, vancomycin as prescribed -blood culture one set came positive for Gram-positive cocci. Repeat blood culture again. Gram-positive bacteremia -continue IV antibiotic ceftriaxone and vancomycin. -cardiology consultation done for CHEPE. -patient was initially thought to be scheduled for CHEPE but cardiology recommended to repeat cultures 1st and not to perform a CHEPE at this time. acute metabolic encephalopathy likely due to pneumonia/hyponatremia -continue antibiotic ceftriaxone and azithromycin, vancomycin as prescribed -monitor CMP -preliminary blood culture Gram-positive cocci in cluster Possible Gram-positive/Gram-negative bacterial pneumonia -continue antibiotic ceftriaxone and azithromycin, vanco as prescribed -monitor CMP Hypernatremia likely due to dehydration -monitor IV fluid as prescribed -monitor CMP UTI -continue ceftriaxone 1 g IV daily -pending urine CS MITCHELL likely due to VMN do to sepsis -avoid dehydration and nephrotoxic drugs -continue IV fluid NSTEMI Type 2 likely in the setting of sepsis -monitor clinically Diabetes mellitus type 2 -insulin sliding scale as prescribed history of hypertension -monitor blood pressure Hyperlipidemia -lipid panel showing hyperlipidemia -start atorvastatin 20 mg daily Goals of care discussed with the patient and grandson at bedside for > 25min, FULL CODE Plan discussed with Dr. Bowden Plan discussed with: Patient, Son Dietary Evaluation Review Comments: 1. Disagree with current diet, liberalize to Full Liquid and D/C sodium/CHO restrictions 2. Encourage good oral intakes >50% of meals to meet est. needs 3. Monitor wt trends closely 4. Assist w/ tray set-up, 1:1 feeding as needed due to AMS 5. Will add Glucerna BID (220 kcal, 10 gm pro/carton) *Change to Ensure Enlive when diet liberalized Expected Outcomes/Goals: Improved nutritional status, weight maintenance. Date of Service: Nov 27, 2024 Billing Provider: AZAR BOWDEN MD Common Visit Codes: [id number] INP/OBS CARE(HIGH) JAYNAABIMAELJEANCARLOS BrownSHEA RESIDENT Nov 27, 2024 16:35 AZAR BOWDEN MD Nov 28, 2024 18:20
[2024-11-27] MEDS: ATORVASTATIN 20 MG TAB PO SCH (21:31)
[2024-11-28] VITALS (9 sets, daily range): BP systolic 126–220; BP diastolic 55–88; PULSE 53–96; RESP 16–18; TEMP 97.4–98.8; O2SAT 91–96
[2024-11-28 05:41] LABS: Basophils # (auto) 0 10 ^3/uL (0-0.2); Basophils % (auto) 0.3 % (0.0-2.0); Eosinophils # (auto) 0.1 10 ^3/uL (0-0.8); Eosinophils % (auto) 2.7 % (0.0-7.0); Hemoglobin 13.4 g/dL (12.2-16.2); Lymphocytes # (auto) 1.3 10 ^3/uL (0.4-5.4); Lymphocytes % (auto) 27.9 % (10.0-50.0); Mean Corpuscular Hemoglobin 29.1 pg (28.0-32.0); Mean Corpuscular Hgb Conc. 32.7 g/dL (32.0-36.0); Mean Corpuscular Volume 89.1 fL (80.0-100.0); Monocytes # (auto) 0.4 10 ^3/uL (0-1.3); Monocytes % (auto) 8.4 % (0.0-12.0); Neutrophils # (auto) 2.8 10 ^3/uL (1.6-8.6); Neutrophils % (auto) 60.7 % (37.0-80.0); Platelet Count (auto) 161 10^3/uL (140-450); Red Cell Distribution Width 16.3 % (11.8-14.3); White Blood Cell 4.6 10^3/uL (4.4-10.8)
[2024-11-28 05:53] LABS: Chloride 104 mmol/L (98-107); Potassium 3.9 mmol/L (3.5-5.1); Sodium 140 mmol/L (136-145)
[2024-11-28 05:54] LABS: Anion Gap 10 (5-15); Carbon Dioxide 26 mmol/L (20-31)
[2024-11-28 05:55] LABS: Calcium 9.2 mg/dL (8.7-10.4); INR 0.99 (0.9-1.15); Partial Thromboplastin Time 21.4 SEC (24.5-34.5); Prothrombin Time 10.5 sec (9.3-11.8)
[2024-11-28 06:00] LABS: BUN/Creatinine Ratio 17.2 (10.0-20.0); Blood Urea Nitrogen 11 mg/dL (9-23)
[2024-11-28 06:05] LABS: Glucose 132 mg/dL (74-106)
[2024-11-28] MEDS: LABETALOL HCL 20 MG/4 ML VL IV ONE (09:30)
[2024-11-28] MEDS ORDERED: hydrALAZINE HCL 20 MG/ML VL IV PRN (09:30)
[2024-11-28] MEDS: hydrALAZINE HCL 20 MG/ML VL IV ONE (10:12)
[2024-11-28] MEDS ORDERED: METO25TA93 PO (14:16)
[2024-11-28] MEDS ORDERED: CIPR500T4 PO (14:16)
[2024-11-28] MEDS ORDERED: DOXY100C79 PO (14:18)
--- NOTE | 2024-11-28 14:32 | DVHDSRES ---
Discharge Summary Date of Admission Resident Creating Document: SHEA PRITCHETT RESIDENT Nov 22, 2024 at 01:26 Date of Discharge: Nov 28, 2024 Admitting Diagnosis Sepsis, hypernatremia pneumoniae Gram-positive versus Gram Labs/Diagnostic Data: Laboratory Results Test 11/28/24 11:35 11/28/24 09:54 11/28/24 05:09 11/24/24 05:28 POC Glucose 239 mg/dl (70-106) Vancomycin Level Trough 18.1 ug/mL (5-10) White Blood Count 4.6 10^3/uL (4.4-10.8) Red Blood Count 4.60 10^6/uL (4.0-5.20) Hemoglobin 13.4 g/dL (12.2-16.2) Hematocrit 41.0 % (36.0-46.0) Mean Corpuscular Volume 89.1 fL (80.0-100.0) Mean Corpuscular Hemoglobin 29.1 pg (28.0-32.0) Mean Corpuscular Hemoglobin Concent 32.7 g/dL (32.0-36.0) Red Cell Distribution Width 16.3 % (11.8-14.3) Platelet Count 161 10^3/uL (140-450) Mean Platelet Volume 10.1 fL (6.9-10.8) Neutrophils (%) (Auto) 60.7 % (37.0-80.0) Lymphocytes (%) (Auto) 27.9 % (10.0-50.0) Monocytes (%) (Auto) 8.4 % (0.0-12.0) Eosinophils (%) (Auto) 2.7 % (0.0-7.0) Basophils (%) (Auto) 0.3 % (0.0-2.0) Neutrophils # (Auto) 2.8 10 ^3/uL (1.6-8.6) Lymphocytes # (Auto) 1.3 10 ^3/uL (0.4-5.4) Monocytes # (Auto) 0.4 10 ^3/uL (0-1.3) Eosinophils # (Auto) 0.1 10 ^3/uL (0-0.8) Basophils # (Auto) 0 10 ^3/uL (0-0.2) Nucleated Red Blood Cells 0.0 % Prothrombin Time 10.5 sec (9.3-11.8) Prothrombin Time INR 0.99 (0.9-1.15) Activated Partial Thromboplast Time 21.4 SEC (24.5-34.5) Sodium Level 140 mmol/L (136-145) Potassium Level 3.9 mmol/L (3.5-5.1) Chloride Level 104 mmol/L (98-107) Carbon Dioxide Level 26 mmol/L (20-31) Anion Gap 10 (5-15) Blood Urea Nitrogen 11 mg/dL (9-23) Creatinine 0.64 mg/dL (0.550-1.02) Glomerular Filtration Rate Calc 85 mL/min (>90) BUN/Creatinine Ratio 17.2 (10.0-20.0) Serum Glucose 132 mg/dL (74-106) Calcium Level 9.2 mg/dL (8.7-10.4) Magnesium Level 1.6 mg/dL (1.6-2.6) Total Bilirubin 0.5 mg/dL (0.2-1.0) Aspartate Amino Transferase (AST) 29 U/L (13-40) Alanine Aminotransferase (ALT) 19 U/L (7-40) Alkaline Phosphatase 51 U/L (46-116) Total Protein 5.9 g/dL (5.7-8.2) Albumin 3.3 g/dL (3.2-4.8) Random Vancomycin Level 10.4 ug/mL (5-10) Test 11/23/24 11:55 11/22/24 10:10 11/22/24 09:27 11/22/24 00:10 Urine Color Light-yellow (Yellow) Urine Clarity Clear (Clear) Urine pH 5.5 (5.0-9.0) Urine Specific [place] 1.018 (1.001-1.035) Urine Protein Negative (Negative) Urine Ketones Negative (Negative) Urine Blood Trace /uL (Negative) Urine Nitrite Negative (Negative) Urine Bilirubin Negative (Negative) Urine Urobilinogen Normal mg/dL (Negative) Urine Leukocyte Esterase 3+ /uL (Negative) Urine RBC 10 /hpf (0 - 4) Urine Microscopic WBC 77 /HPF (0-5) Urine Squamous Epithelial Cells Few /hpf (<5) Urine Bacteria None seen /hpf (None Seen) Urine Mucus Few (None Seen) Urine Glucose 4+ mg/dL (Normal) Blood Gas Specimen Type Arterial Blood Gas Sample Site Left radial Blood Gas Patient Temperature 37.0 Arterial Blood Date Drawn [id number] Arterial Blood pH 7.436 (7.350-7.450) Arterial Blood Partial Pressure CO2 38.6 mmHg (32.0-45.0) Arterial Blood Partial Pressure O2 58.2 mmHg (83.0-108.0) Arterial Blood HCO3 25.4 mmol/L (21.0-28.0) Arterial Blood Oxygen Saturation 89.5 % (94.0-98.0) Arterial Blood Base Excess 1.3 mmol/L (-2.0-3.0) Arterial Blood Oxyhemoglobin 88.2 % (94.0-98.0) Arterial Blood Carboxyhemoglobin 1.0 % (0.5-1.5) Arterial Blood Methemoglobin 0.5 % (0.0-1.5) Cortez Test Yes Blood Gas Total Hemoglobin 16.10 g/dL (12.0-16.0) Blood Gas Modality Nasal cannula FiO2 % 40.0 Erythrocyte Sedimentation Rate 29 mm/hr (0-20) D-Dimer, Quantitative 3.00 mg/L FEU (0.0-0.49) Hemoglobin A1c 6.7 % A1C (<5.7) Iron Level 86 ug/dL (50-170) Total Iron Binding Capacity 340 ug/dL (250-425) Percent Iron Saturation 25.3 % (15-50) Ferritin 46.0 ng/mL (10-291) C-Reactive Protein High Sensitivity 2.38 mg/dL (<1.0) Triglycerides Level 165 mg/dL (< 150) Cholesterol Level 229 mg/dL (< 200) LDL Cholesterol 165 mg/dL (< 100) HDL Cholesterol 39 mg/dL (40-59) Thyroid Stimulating Hormone (TSH) 1.81 uIU/mL (0.55-4.78) Influenza Type A Antigen Negative (Negative) Influenza Type B Antigen Negative (Negative) SARS-CoV-2 Antigen (Rapid) Negative (NEGATIVE) Test 11/21/24 22:00 11/21/24 18:59 Troponin I High Sensitivity 41 ng/L (</=34) B-Type Natriuretic Peptide 269.12 pg/mL (0-100) Other Laboratory Tests 11/28/24 05:09 Brief Hx & Hospital Course: HPI- Patient is 89 years old female with past medical history of hypertension, diabetes mellitus, hyperlipidemia, dementia was brought in due to productive cough. As per family granddaughter patient has been having cough with greenish sputum for last 7 days associated with sweating, denied any fever, chest pain or shortness of breath. Patient was taken to clinic and where she was found to have hypoxemia and tachycardia. The so patient was referred to ER. Initial lab workup revealed polycythemia, hyponatremia sodium 158, MITCHELL with a serum creatinine 1.47, BUN 36, mildly elevated troponin I 39> 35>45, BNP 269, D-dimer 3.0, negative for COVID-19 and influenza type A and B. triglyceride 165, cholesterol 229, LDL 165. CXR left basilar atelectasis. 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 CT abdomen and pelvis- 1. Sigmoid diverticulosis. No free air or free fluid. 2. No calcified gallstones 3. No nephrolithiasis or hydronephrosis. CT chest-Nonspecific ground-glass opacities, left greater than right, suggestive of atypical pneumonia. Bibasilar atelectasis. Trace bilateral pleural effusions. Preliminary blood culture positive for Gram-positive cocci in cluster- Staph hominis subsp homis.. Urinalysis positive for UTI, on ceftriaxone IV 1 g daily. Repeat blood culture was negative for any. Repeat Urine culture negative for significant growth. ECHO- Sinus rhythm. Concentric LVH with left atrial enlargement. Mild dilation of the sinuses of Valsalva. Septal hypertrophy. Valves are normal. Left ventricular systolic performance is preserved at 60% with normal RV function. Hospital course-Patient is 89 years old female with past medical history of hypertension, diabetes mellitus, hyperlipidemia, dementia was brought in due to productive cough. As per family granddaughter patient has been having cough with greenish sputum for last 7 days associated with sweating, denied any fever, chest pain or shortness of breath. Patient was taken to clinic and where she was found to have hypoxemia and tachycardia. The so patient was referred to ER. Initial lab workup revealed polycythemia, hyponatremia sodium 158, MITCHELL with a serum creatinine 1.47, BUN 36, mildly elevated troponin I 39> 35>45, BNP 269, D- dimer 3.0, negative for COVID-19 and influenza type A and B. triglyceride 165, cholesterol 229, LDL 165. CXR left basilar atelectasis. 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 CT abdomen and pelvis- 1. Sigmoid diverticulosis. No free air or free fluid. 2. No calcified gallstones 3. No nephrolithiasis or hydronephrosis. CT chest-Nonspecific ground-glass opacities, left greater than right, suggestive of atypical pneumonia. Bibasilar atelectasis. Trace bilateral pleural effusions. Preliminary blood culture positive for Gram-positive cocci in cluster- Staph hominis subsp homis.. Urinalysis positive for UTI, on ceftriaxone IV 1 g daily. Repeat blood culture was negative for any. Uterine culture negative for significant growth. Patient was treated with IV fluid and IV antibiotic. Hypernatremia was corrected. Patient's symptoms improved patient clinically improved and was awake and alert and conversant. Vitals were stable.TTE- was negative for any vegetation. ECHO- Sinus rhythm. Concentric LVH with left atrial enlargement. Mild dilation of the sinuses of Valsalva. Septal hypertrophy. Valves are normal. Left ventricular systolic performance is preserved at 60% with normal RV function. . Repeat blood culture was negative for any growth. Because of patient's age and and because of patient's repeat blood culture was negative cardiology deferred to do any CHEPE. Patient is being discharged home with the doxycycline 100 mg p.o. daily and, metoprolol succinate 25 mg p.o. daily. Patient and family was advised to follow up with the primary care physician in 1 week. Patient's meds were sent to the pharmacy electronically. Patient was hemodynamically stable on discharge. Assessment # sepsis likely due to pneumonia/UTI Bacteremia Gram-positive cocci in cluster # acute metabolic encephalopathy likely due to pneumonia/hyponatremia # suspected pneumonia Gram-positive versus Gram-negative #Atrial fibrillation with RVR, now NSR, newly diagnosed # Hypernatremia likely due to dehydration # UTI with sepsis # MITCHELL likely due to VMN # NSTEMI Type 2 likely due to # diabetes mellitus type 2 # history of hypertension # hyperlipidemia # dementia Discharge plan Doxycycline 100 mg p.o. b.i.d. for 14 days Metoprolol succinate 25 mg p.o. daily Please resume other home medications Please follow up with the primary care physician in 1 week Operations or Procedures [place] [id number] Ph: [phone] DIAGNOSTIC IMAGING Diagnostic Imaging Report : [id number] Signed PATIENT: CHANNING PATEL ACCT: [id number] UNIT: [id number] : 1935 LOC: [facility] ROOM / BED: 0236 / A AGE / SEX: 89 / F ADM STATUS: ADM IN SERVICE 1610 ORDERING PHYSICIAN: TONY OBREGON PROCEDURE(s): HWOCT - HEAD WITHOUT CONTRAST REASON: ALOC with new onset a-fib ORDER NUMBER(s): [id number], ACCESSION NUMBER(s): [id number] CT HEAD WITHOUT CONTRAST INDICATION: ALOC with new onset a-fib : 89 old Female ALOC with new onset a-fib EXAM DATE: 11/26/2024 04:19 PM COMPARISON: None RADIATION DOSE: CTDIvol: 53.89 mGy, DLP: 973.47 mGy*cm PROCEDURE: CT scans of the head were obtained from the vertex to the skull base. Sagittal and coronal reconstructions were provided. All CT scans at this medical facility are performed using dose modulation techniques as appropriate to a performed exam including the following: Automated exposure control was utilized; adjustment of the MA and/or KV according to patient size; and use of iterative reconstruction technique. 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 There is sulcal and ventricular prominence. The brain otherwise shows normal morphology and mckay-white matter differentiation, without intracranial hemorrhage, extra-axial fluid collection, mass effect or acute large vessel infarct.The basal cisterns are patent. The skull and visible facial bones are intact. The paranasal sinuses, mastoid air cells and middle ear cavities are well-aerated. The soft tissues of the scalp are unremarkable. 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 No acute intracranial abnormality. ATED BY: DEREK VEGA MD DICTATED DATE/TIME: 11/26/241658 SIGNED BY: DEREK VEGA MD SIGNED DATE/TIME: 11/26/241658 CC: [address] [id number] Ph: [phone] DIAGNOSTIC IMAGING Diagnostic Imaging Report : [id number] Signed PATIENT: CHANNING PATEL ACCT: [id number] UNIT: [id number] : 1935 LOC: [facility] ROOM / BED: 0236 / A AGE / SEX: 89 / F ADM STATUS: ADM IN SERVICE 1413 ORDERING PHYSICIAN: MARK CHI PROCEDURE(s): ABPL - CT AB PEL WO CON-NO ORAL OR IV REASON: persistent bacteremia ORDER NUMBER(s): [id number], ACCESSION NUMBER(s): [id number] Exam: CT CT AB PEL WO CON-NO ORAL OR IV History: persistent bacteremia Comparison Study: None available at time of dictation. TECHNIQUE: Multidetector CT of the abdomen was performed from lung bases to pubic symphysis. Imaging was performed without IV contrast. Axial, coronal and sagittal multiplanar reformats were obtained from the axial data set by the technologist. Radiation Dose Information: CT Dose: CTDI volume is 9.55 mGy. Dose-length product is 496.7 mGy*cm FINDINGS: Evaluation of solid organs is limited due to lack of intravenous contrast use. Findings: Lung Bases: Patchy airspace disease posterior costophrenic angles left worse than right.. Normal heart size. No pericardial effusion. Trace pleural effusions. Liver: The liver is normal in size. No focal lesions. Gallbladder and Biliary Tree: Unremarkable Spleen: Unremarkable Pancreas: The pancreas is grossly normal in appearance. Adrenal Glands: Unremarkable Kidneys: Kidneys are grossly normal without calculi or hydronephrosis. Bladder: David catheter in the bladder Bowel: The stomach is grossly normal in appearance. Small bowel and colon are normal in caliber and distribution. The appendix is not visualized; however, no secondary findings of acute appendicitis identified. Ascites: Absent Lymphadenopathy: No mesenteric, retroperitoneal or periportal lymphadenopathy. Abdominal Wall and Mesentery: Unremarkable. Vasculature: The visualized abdominal aorta is normal in size and caliber. Evaluation of abdominal and pelvic vessels is limited due to lack of intravenous contrast. Pelvic Organs: Unremarkable Musculoskeletal: No aggressive focal bony lesions, acute fractures or dislocation. Soft tissues: Unremarkable IMPRESSION: 1. Sigmoid diverticulosis. No free air or free fluid. 2. No calcified gallstones 3. No nephrolithiasis or hydronephrosis 4. No findings of bowel obstruction. 5. David catheter in the bladder. 6. 7 x 5.2 cm stool-filled rectum. Radiation optimization: All CT scans at this facility use at least one of these dose optimization techniques: automated exposure control mA and/or kV adjustment per patient size (includes targeted exams where dose is matched to clinical indication) or iterative reconstruction. HS:Y ATED BY: JOSE R QUINTERO Jr., DO DICTATED DATE/TIME: 11/26/241552 SIGNED BY: JOSE R QUINTERO Jr., SIGNED DATE/TIME: 11/26/241552 CC: [place] [id number] Ph: [phone] DIAGNOSTIC IMAGING Diagnostic Imaging Report : [id number] Signed PATIENT: CHANNING PATEL ACCT: [id number] UNIT: [id number] : 1935 LOC: [facility] ROOM / BED: [facility] / A AGE / SEX: 89 / F ADM STATUS: ADM IN SERVICE 1146 ORDERING PHYSICIAN: AZAR DAVIES MD PROCEDURE(s): CX2CT - CHEST WITHOUT CONTRAST REASON: PNA ORDER NUMBER(s): [id number], ACCESSION NUMBER(s): [id number] Procedure: CT CHEST WITHOUT CONTRAST Reason for study/Clinical History:pain PNA Comparison Study: None available at time of dictation. Exam Date: 11/25/2024 12:18 PM TECHNIQUE: Multidetector CT of the chest was performed from the lung apices to the upper abdomen without the use of intravenous contract. Axial, coronal and sagittal multiplanar reformats were performed. RADIATION DOSE: CTDI volume is 11.06 mGy. Dose-length product is 347.33 mGy*cm The dose indicators for CT are the volume Computed Tomography (CT) Dose Index (CTDIvol) and the Dose Length Product (DLP), and are measured in units of mGy and mGy-cm, respectively. These indicators are not patient dose, but values generated from the CT scanner acquisition factors. The report includes radiation exposure data for exposures received during this examination. FINDINGS: Lower neck: Normal thyroid. Lungs: There are nonspecific ground-glass opacities, left greater than right. Bibasilar atelectasis. Trace bilateral pleural effusions. Heart/Vascular Structures: Normal heart size. No pericardial effusion. Severe coronary artery atherosclerotic vascular disease. Calcifications of the aortic root. Severe atherosclerotic vascular disease of the thoracic aorta and its branches. Lymph Nodes: No adenopathy Pleura: No pleural effusion or significant pneumothorax. Musculoskeletal: No acute osseous abnormality. Soft tissues: Normal. Upper abdomen: Limited portions of the upper abdomen are unremarkable. IMPRESSION: Nonspecific ground-glass opacities, left greater than right, suggestive of atypical pneumonia. Bibasilar atelectasis. Trace bilateral pleural effusions. Radiation optimization: All CT scans at this facility use at least one of these dose optimization techniques: automated exposure control mA and/or kV adjustment per patient size (includes targeted exams where dose is matched to clinical indication) or iterative reconstruction. ATED BY: TANIKA BLUE MD DICTATED DATE/TIME: 11/25/241412 SIGNED BY: TANIKA BLUE MD SIGNED DATE/TIME: 11/25/241412 CC: [place] [id number] Ph: [phone] DIAGNOSTIC IMAGING Diagnostic Imaging Report : [id number] Signed PATIENT: CHANNING PATEL ACCT: [id number] UNIT: [id number] : 1935 LOC[facility] AGE / SEX: 89 / F ADM STATUS: ADM IN SERVICE 1524 ORDERING PHYSICIAN: BRAVO HUGGINS RESIDENT PROCEDURE(s): BLDVT - BiLat Lower DVT REASON: ???DVT ORDER NUMBER(s): [id number], ACCESSION NUMBER(s): [id number] EXAM: US BILAT LOWER DVT Clinical History: DVT Comparison: None Technique: Duplex Doppler evaluation of the deep venous systems of both lower extremities from the common femoral veins to the popliteal veins including color Doppler and spectral/pulsed waveform analysis was performed. Findings: No visible intraluminal venous thrombus. No evidence of incompressibility or abnormal color or spectral Doppler flow visualized in the deep bilateral lower extremity veins. Proximal greater saphenous veins are grossly unremarkable. The right distal superficial femoral, popliteal, and posterior tibial veins are not visualized. Impression: 1. No sonographic evidence of deep venous thrombosis throughout the visualized bilateral lower extremities from the popliteal veins to the common femoral veins. 2. The right distal superficial femoral, popliteal, and posterior tibial veins are not visualized. ATED BY: ROSA PATEL DO DICTATED DATE/TIME: 11/22/241631 SIGNED BY: ROSA PATEL DO SIGNED DATE/TIME: 11/22/241631 CC: [place] [id number] Ph: [phone] DIAGNOSTIC IMAGING Diagnostic Imaging Report : [id number] Signed PATIENT: CHANNING PATEL ACCT: [id number] UNIT: [id number] : 1935 LOC: ER ROOM / BED: / AGE / SEX: 89 / F ADM STATUS: REG ER SERVICE 31 ORDERING PHYSICIAN: TONI BINGHAM MD PROCEDURE(s): CXR2 - CHEST TWO VIEWS ROUTINE REASON: sob ORDER NUMBER(s): [id number], ACCESSION NUMBER(s): [id number] EXAM: XY CHEST TWO VIEWS ROUTINE TECHNIQUE: Two radiographic views of the chest CLINICAL HISTORY: sob COMPARISON: None Findings/Impression: Frontal and lateral chest radiographs demonstrate that the patient facial structures obscuring the bilateral apices. No acute osseous or superficial soft tissue abnormalities. The trachea is midline. The cardiac silhouette and mediastinum are within normal limits. Left basilar atelectasis. No pneumothorax, pleural effusions, or consolidations. ATED BY: ROSA PATEL DO DICTATED DATE/TIME: 11/21/241944 SIGNED BY: ROSA PATEL DO SIGNED DATE/TIME: 11/21/241944 CC: Condition at Discharge: Stable Final Diagnosis/Problems List # sepsis likely due to pneumonia/UTI Bacteremia Gram-positive cocci in cluster-rule out infective endocarditis-bacteremia resolved and patient was not a good candidate for CHEPE because of her age Atrial fibrillation with RVR, now NSR, newly diagnosed # acute metabolic encephalopathy likely due to pneumonia/hyponatremia # suspected pneumonia Gram-positive versus Gram-negative Bilateral pleural effusion # Hypernatremia likely due to dehydration # UTI with sepsis # MITCHELL likely due to VMN # NSTEMI Type 2 likely due to # diabetes mellitus type 2 # history of hypertension # hyperlipidemia # dementia Discharge Disposition: Home Discharge Instruct/Medications Diet: Consistent carbohydrate, Cardiac 2g Na,low cholest Follow Up/Referral: Please follow up with the primary care physician in 1 week Please avoid dehydration and nephrotoxic drugs Medications: Doxycycline 100 mg p.o. b.i.d. for 14 days Metoprolol succinate 25 mg p.o. daily Please resume other home medication Discharge Statement: "Patient was advised to return to the ER or call 911 if any headaches, dizziness, shortness of breath, chest pain, abdominal pain, bleeding, fevers, or worsening of medical condition. Patient was counseled about treatment plan, medications, possible side effects, patientverbalized understanding. All questions were answered to the best of my ability. This discharge took greater then 30 minutes in planning, reviewing documentation, counseling the patient, and discussing with other team members." ASSESSMENT ASSESSMENT Assessment Date of Service: Nov 28, 2024 Billing Provider: STACY REID MD Common Visit Codes: 50857-XGF/OBS DISCH DAY >30min BRAVO HUGGINS RESIDENT Nov 28, 2024 14:31 STACY REID MD Dec 07, 2024 01:45
[2024-11-28] MEDS: amLODIPine BESYLATE 5 MG TAB PO SCH (21:53)
[2024-11-29 05:00] VITALS: BP 159/62; PULSE 68; RESP 16; TEMP 97.1; O2SAT 94
[2024-11-29 05:57] LABS: Basophils # (auto) 0 10 ^3/uL (0-0.2); Basophils % (auto) 0.3 % (0.0-2.0); Eosinophils # (auto) 0.1 10 ^3/uL (0-0.8); Eosinophils % (auto) 1.5 % (0.0-7.0); Hematocrit 43.6 % (36.0-46.0); Hemoglobin 14.2 g/dL (12.2-16.2); Lymphocytes # (auto) 1.2 10 ^3/uL (0.4-5.4); Lymphocytes % (auto) 18.4 % (10.0-50.0); Mean Corpuscular Hemoglobin 28.4 pg (28.0-32.0); Mean Corpuscular Hgb Conc. 32.7 g/dL (32.0-36.0); Mean Corpuscular Volume 86.8 fL (80.0-100.0); Monocytes # (auto) 0.5 10 ^3/uL (0-1.3); Monocytes % (auto) 7.5 % (0.0-12.0); Neutrophils # (auto) 4.6 10 ^3/uL (1.6-8.6); Neutrophils % (auto) 72.3 % (37.0-80.0); Nucleated Red Blood Cells % 0.1 %; Platelet Count (auto) 207 10^3/uL (140-450); Red Blood Cells 5.02 10^6/uL (4.0-5.20); Red Cell Distribution Width 16.4 % (11.8-14.3); White Blood Cell 6.4 10^3/uL (4.4-10.8)
[2024-11-29 08:00] VITALS: PULSE 73
[2024-11-29 09:00] VITALS: BP 136/63; PULSE 71; RESP 18; TEMP 98.2; O2SAT 96
[2024-11-29 13:00] VITALS: BP 135/60; PULSE 71; RESP 18; TEMP 98.1; O2SAT 94
--- NOTE | 2024-11-29 14:13 | DVHPNRES ---
Progress Note Date Seen: Nov 29, 2024 Resident Creating Document: BRAVO HUGGINS RESIDENT Has the PT tested + for MRSA If YES, has PT been informed?: No Medical Necessity Reason Pt with a Central, PICC or Fol: No The following are medically ne: PICC Line, David Catheter Subjective Review of Systems HPI- Patient is 89 years old female with past medical history of hypertension, diabetes mellitus, hyperlipidemia, dementia was brought in due to productive cough. As per family granddaughter patient has been having cough with greenish sputum for last 7 days associated with sweating, denied any fever, chest pain or shortness of breath. Patient was taken to clinic and where she was found to have hypoxemia and tachycardia. The so patient was referred to ER. Initial lab workup revealed polycythemia, hyponatremia sodium 158, MITCHELL with a serum creatinine 1.47, BUN 36, mildly elevated troponin I 39> 35>45, BNP 269, D-dimer 3.0, negative for COVID-19 and influenza type A and B. triglyceride 165, cholesterol 229, LDL 165. CXR left basilar atelectasis. 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 CT abdomen and pelvis- 1. Sigmoid diverticulosis. No free air or free fluid. 2. No calcified gallstones 3. No nephrolithiasis or hydronephrosis. CT chest-Nonspecific ground-glass opacities, left greater than right, suggestive of atypical pneumonia. Bibasilar atelectasis. Trace bilateral pleural effusions. Preliminary blood culture positive for Gram-positive cocci in cluster- Staph hominis subsp homis.. Urinalysis positive for UTI, on ceftriaxone IV 1 g daily. Repeat blood culture was negative for any. Repeat Urine culture negative for significant growth. ECHO- Sinus rhythm. Concentric LVH with left atrial enlargement. Mild dilation of the sinuses of Valsalva. Septal hypertrophy. Valves are normal. Left ventricular systolic performance is preserved at 60% with normal RV function. Patient was seen today for clinical evaluation. Labs and chart reviewed. Patient was discharged home. Objective vital signs Vital Sign Date Time Temp Pulse Resp B/P (MAP) Pulse Ox O2 Delivery O2 Flow Rate FiO2 11/29/24 13:00 98.1 71 18 135/60 (85) 94 98.1 11/29/24 08:00 Room Air* 0 21 Total Intake and Output 11/28/24 11/28/24 11/29/24 15:00 23:00 07:00 Intake Total 150 ml 0 ml 0 ml Output Total 300 ml 145 ml Balance 150 ml -300 ml -145 ml medications Current Medications Medications Dose Ordered Sig/Clara Route Start Time Stop Time Status Last Admin Dose Admin Docusate Sodium 100 mg BIDPRN PRN PO 11/22/24 01:30 Nitroglycerin 0.4 mg Q5MINP PRN SL 11/22/24 01:30 Morphine Sulfate 2 mg Q30M PRN IV 11/22/24 01:30 Ceftriaxone Sodium 50 ml @ 100 mls/hr DAILY@09 IV 11/22/24 09:00 11/29/24 11:44 100 MLS/HR Pantoprazole Sodium 40 mg DAILY IV 11/22/24 10:00 11/29/24 11:38 40 MG Diagnostic Test (Pha) 1 strip Q6HR 11/23/24 12:00 11/29/24 12:04 1 STRIP Insulin Human Regular Q6HR SC 11/23/24 12:00 11/29/24 12:00 4 UNITS Dextrose 50 ml UD PRN IV 11/23/24 10:45 Vancomycin HCl 0 ml @ 0 mls/hr UD IV 11/23/24 13:45 Enoxaparin Sodium 50 mg BID SC 11/26/24 22:00 11/29/24 11:38 50 MG Vancomycin HCl 100 ml @ 100 mls/hr Q18H IV 11/26/24 22:00 11/29/24 04:00 100 MLS/HR Metoprolol Tartrate 12.5 mg BID PO 11/26/24 22:00 11/29/24 11:39 12.5 MG Guaifenesin/ Dextromethorphan 5 ml Q6HR PRN PO 11/26/24 21:15 11/28/24 10:14 5 ML Atorvastatin Calcium 20 mg HS PO 11/27/24 22:00 11/28/24 22:08 20 MG Hydralazine HCl 10 mg Q6HP PRN IV 11/28/24 09:30 Amlodipine Besylate 5 mg BID PO 11/28/24 22:00 11/29/24 11:38 5 MG Examination HEENT- PEERLA, no acute nasal discharge Cardiovascular- S1-S2 audible, rate and rhythm regular, no murmur Respiratory- CTAB, no wheeze or rhonchi Gastrointestinal-nontender, bowel sound+. Nondistended Musculoskeletal-no acute joint swelling or tenderness or redness Lower extremity- no leg swelling Neurological- cranial nerves intact, no acute dysarthria or dysphagia Skin- no acute rash or purpura laboratory and microbiology Laboratory Tests 11/29/24 05:02 11/28/24 05:09 Test 11/28/24 05:09 Range/Units Serum Glucose 132 H 74-106 mg/dL Microbiology Date/Time Source Procedure Growth Status 11/25/24 17:54 Blood Blood Culture - Preliminary NO GROWTH AFTER 72 HOURS OF INCUBATION. Resulted 11/23/24 11:59 Voided Urine Urine Culture - Final Complete Problem List/Assessment/Plan Problem List/Assessment/Plan Assessment and plan # sepsis likely due to pneumonia/UTI Bacteremia Gram-positive cocci in cluster-rule out infective endocarditis-bacteremia resolved and patient was not a good candidate for CHEPE because of her age Atrial fibrillation with RVR, now NSR, newly diagnosed # acute metabolic encephalopathy likely due to pneumonia/hyponatremia # suspected pneumonia Gram-positive versus Gram-negative Bilateral pleural effusion # Hypernatremia likely due to dehydration # UTI with sepsis # MITCHELL likely due to VMN # NSTEMI Type 2 likely due to # diabetes mellitus type 2 # history of hypertension # hyperlipidemia # dementia Continue current treatment Avoid dehydration and nephrotoxic drugs Patient is being discharged home today Goals of care, Code status ; discussed with >15 minutes PUD prophylaxis: Pantoprazole DVT prophylaxis: Lovenox Plan discussed with Dr. Kruger , nursing staff, granddaughter Total time spent on patient evaluation, chart review, assessment and plan, discussion discussion >35 minutes Plan discussed with: Patient, Daughter, Other (RN) My Orders My Orders Orders - BRAVO HUGGINS RESIDENT Procedure Category Date Status Time Discharge DISCHARGE 11/28/24 Transmitted 14:42 Vancomycin,Trough LAB 12/01/24 Verified 09:00 Vancomycin Per CAS 11/28/24 In Process Pharmacy Protoc 15:42 Dietary Evaluation Review Comments: 1. Disagree with current diet, liberalize to Full Liquid and D/C sodium/CHO restrictions 2. Encourage good oral intakes >50% of meals to meet est. needs 3. Monitor wt trends closely 4. Assist w/ tray set-up, 1:1 feeding as needed due to AMS 5. Will add Glucerna BID (220 kcal, 10 gm pro/carton) *Change to Ensure Enlive when diet liberalized Expected Outcomes/Goals: Improved nutritional status, weight maintenance. Date of Service: Nov 29, 2024 Billing Provider: STACY REID MD Common Visit Codes: [id number] INP/OBS CARE(HIGH) BRAVO HUGGINS RESIDENT Nov 29, 2024 14:13 STACY REID MD Dec 07, 2024 01:33
[2024-11-29 16:54] VITALS: BP 132/66; PULSE 74; RESP 17; TEMP 98; O2SAT 92
== END 2024-11-29 20:35 | disposition home or self-care (01) | DRG 871 ==
LOC: ER 16:33 → OVERFLOW 11-22 01:26 → TELE-EAST 11-22 01:31 → EAST 11-25 17:21 → TELE-EAST 11-26 20:22
PROVIDERS: ADMIT Student in an Organized Health Care Education/Training Program; ATTEND Emergency Medicine
DX: A41.50 Gram-negative sepsis, unspecified (principal); G93.41 Metabolic encephalopathy; J15.69 Pneumonia due to other Gram-negative bacteria; I21.A1 Myocardial infarction type 2; J96.01 Acute respiratory failure with hypoxia; N17.0 Acute kidney failure with tubular necrosis; J15.9 Unspecified bacterial pneumonia; I33.0 Acute and subacute infective endocarditis; E87.0 Hyperosmolality and hypernatremia; N39.0 Urinary tract infection, site not specified; E87.1 Hypo-osmolality and hyponatremia; D75.1 Secondary polycythemia; F03.90 Unspecified dementia, unspecified severity, without behavioral disturbance, psychotic disturbance, mood disturbance, and anxiety; I48.91 Unspecified atrial fibrillation; E11.9 Type 2 diabetes mellitus without complications; Z20.822 Contact with and (suspected) exposure to COVID-19; E78.5 Hyperlipidemia, unspecified; I10 Essential (primary) hypertension; E83.52 Hypercalcemia; E86.0 Dehydration; Z88.8 Allergy status to other drugs, medicaments and biological substances; Z79.899 Other long term (current) drug therapy; Z79.02 Long term (current) use of antithrombotics/antiplatelets; Z79.84 Long term (current) use of oral hypoglycemic drugs
CPT/HCPCS: 36415; 36600; 70450; 71046; 71250; 74176; 80048; 80053; 80061; 80202; 81001; 82565; 82728; 82805; 82962; 83036; 83540; 83550; 83735; 83880; 84443; 84484; 85025; 85379; 85610; 85652; 85730; 86141; 87040; 87077; 87086; 87186; 87426; 87804; 92610; 93005; 93306; 93970; 97110; 97163; 97530; 99291; G0378; J1815; J2470